=== PATIENT | female | born 1940 | race Caucasian/White ===

== ENCOUNTER 2018-04-18 12:21 | Emergency (ER) | payer OTHER, MEDICARE | END 2018-04-18 14:41 | disposition home or self-care (01) | LOC: ER 12:21 | DX: M16.11 Unilateral primary osteoarthritis, right hip (principal); E78.00 Pure hypercholesterolemia, unspecified; I10 Essential (primary) hypertension; K21.9 Gastro-esophageal reflux disease without esophagitis; Z90.49 Acquired absence of other specified parts of digestive tract | CPT/HCPCS: 73502; 99284 ==

== ENCOUNTER 2019-06-26 15:48 | Emergency (ER) | payer OTHER, MEDICARE ==
[~2019-06-26] VITALS: Ht 165.1 cm; Wt 69.9 kg
[~2019-06-26 15:48] MED LIST: CIPR250T PO; HYDR-2761 PO; HYDR-3164 PO; LISI-130 PO; ONDA4TAB10 SL
--- NOTE | 2019-06-26 16:05 | PHYS DOC ---
Past Medical History Past Medical History: GERD, Hypertension Additional Past Medical Histor: OSTEOPOROSIS (RAJANI JORGE APRN) Past Surgical History: Appendectomy, Tonsillectomy Additional Past Surgical Histo: HEPATIC CYST REMOVAL (RAJANI JORGE APRN) Alcohol Use: Rarely Drug Use: None (RAJANI JORGE APRN) Adult General Chief Complaint Chief Complaint: SHORTNESS OF BREATH HPI HPI Patient is a 78 year old female with history of hypertension, acid reflex, arthritis to the left hip, who presents to the ED today complaining of intermittent episodes of shortness of breath for one week. Patient denies any cough, congestion, fever. She was seen by the PCP today and was sent to the ED to be worked up. (RAJANI JORGE APRN) Review of Systems Review of Systems Constitutional: Denies fever or chills [] Eyes: Denies change in visual acuity, redness, or eye pain [] HENT: Denies nasal congestion or sore throat [] Respiratory: Reports shortness of breath [] Cardiovascular: No additional information not addressed in HPI [] GI: Denies abdominal pain, nausea, vomiting, bloody stools or diarrhea [] : Denies dysuria or hematuria [] Musculoskeletal: Denies back pain or joint pain [] Integument: Denies rash or skin lesions [] Neurologic: Denies headache, focal weakness or sensory changes [] All other systems were reviewed and found to be within normal limits, except as documented in this note. (RAJANI JORGE APRN) Current Medications Current Medications Current Medications Medications (Trade) Dose Ordered Sig/Phillip Start Time Stop Time Status Last Admin Dose Admin Albuterol/ Ipratropium (Duoneb) 3 ml 1X ONCE 06/26/19 18:45 06/26/19 18:46 DC 06/26/19 18:45 3 ML Ceftriaxone Sodium (Rocephin) 1 gm 1X ONCE 06/26/19 18:30 06/26/19 18:31 DC 06/26/19 19:14 1 GM Info (CONTRAST GIVEN -- Rx MONITORING) 1 each PRN DAILY PRN 06/26/19 17:30 06/26/19 20:13 DC Iohexol (Omnipaque 350 Mg/ml) 100 ml 1X ONCE 06/26/19 18:00 06/26/19 18:01 DC 06/26/19 17:51 100 ML Methylprednisolone Sodium Succinate (SOLU-Medrol 125MG VIAL) 125 mg 1X ONCE 06/26/19 18:45 06/26/19 18:46 DC 06/26/19 19:14 125 MG (STEVO TERRY DO) Allergies Allergies Allergies Coded Allergies Type Severity Reaction Last Updated Verified No Known Drug Allergies 09/18/15 No (STEVO TERRY DO) Physical Exam Physical Exam Constitutional: Well developed, well nourished, no acute distress, non-toxic appearance. [] HENT: Normocephalic, atraumatic, bilateral external ears normal, oropharynx moist, no oral exudates, nose normal. [] Eyes: PERRLA, EOMI, conjunctiva normal, no discharge. [] Neck: Normal range of motion, no tenderness, supple, no stridor. [] Cardiovascular:Heart rate regular rhythm, no murmur [] Lungs & Thorax: Lungs are clear the patient seems to breathe faster Abdomen: Bowel sounds normal, soft, no tenderness, no masses, no pulsatile masses. [] Skin: Warm, dry, no erythema, no rash. [] Back: No tenderness, no CVA tenderness. [] Extremities: No tenderness, no cyanosis, no clubbing, ROM intact, no edema. [] Neurologic: Alert and oriented X 3, normal motor function, normal sensory function, no focal deficits noted. [] Psychologic: Patient appears very anxious. (RAJANI JORGE APRN) Current Patient Data Vital Signs Vital Signs Date Time Temp Pulse Resp B/P (MAP) Pulse Ox O2 Delivery O2 Flow Rate FiO2 06/26/19 18:49 71 142/61 (88) Room Air 06/26/19 18:45 96 06/26/19 16:31 18 06/26/19 15:54 97.8 97.8 (STEVO TERRY DO) Lab Values Laboratory Tests Test 06/26/19 16:27 06/26/19 16:49 White Blood Count 11.3 x10^3/uL (4.0-11.0) H Red Blood Count 4.50 x10^6/uL (3.50-5.40) Hemoglobin 13.4 g/dL (12.0-15.5) Hematocrit 39.3 % (36.0-47.0) Mean Corpuscular Volume 87 fL (79-100) Mean Corpuscular Hemoglobin 30 pg (25-35) Mean Corpuscular Hemoglobin Concent 34 g/dL (31-37) Red Cell Distribution Width 13.5 % (11.5-14.5) Platelet Count 290 x10^3/uL (140-400) Neutrophils (%) (Auto) 63 % (31-73) Lymphocytes (%) (Auto) 28 % (24-48) Monocytes (%) (Auto) 7 % (0-9) Eosinophils (%) (Auto) 1 % (0-3) Basophils (%) (Auto) 1 % (0-3) Neutrophils # (Auto) 7.2 x10^3/uL (1.8-7.7) Lymphocytes # (Auto) 3.2 x10^3/uL (1.0-4.8) Monocytes # (Auto) 0.8 x10^3/uL (0.0-1.1) Eosinophils # (Auto) 0.1 x10^3/uL (0.0-0.7) Basophils # (Auto) 0.1 x10^3/uL (0.0-0.2) Prothrombin Time 12.3 SEC (11.7-14.0) Prothrombin Time INR 0.9 (0.8-1.1) Activated Partial Thromboplast Time 27 SEC (24-38) D-Dimer (Lavinia) 1.39 ug/mlFEU (0.00-0.50) H Sodium Level 141 mmol/L (136-145) Potassium Level 3.7 mmol/L (3.5-5.1) Chloride Level 103 mmol/L (98-107) Carbon Dioxide Level 23 mmol/L (21-32) Anion Gap 15 (6-14) H Blood Urea Nitrogen 17 mg/dL (7-20) Creatinine 1.0 mg/dL (0.6-1.0) Estimated GFR (Cockcroft-Gault) 53.8 BUN/Creatinine Ratio 17 (6-20) Glucose Level 99 mg/dL (70-99) Calcium Level 9.8 mg/dL (8.5-10.1) Magnesium Level 2.0 mg/dL (1.8-2.4) Total Bilirubin 0.4 mg/dL (0.2-1.0) Aspartate Amino Transferase (AST) 16 U/L (15-37) Alanine Aminotransferase (ALT) 17 U/L (14-59) Alkaline Phosphatase 66 U/L (46-116) Creatine Kinase 59 U/L (26-192) Creatine Kinase MB (Mass) 0.7 ng/mL (0.0-3.6) Creatine Kinase MB Relative Index % (0-4) Troponin I Quantitative < 0.017 ng/mL (0.000-0.055) SN-Pdt-M-Type Natriuretic Peptide 162 pg/mL (0-449) Total Protein 7.1 g/dL (6.4-8.2) Albumin 3.8 g/dL (3.4-5.0) Albumin/Globulin Ratio 1.2 (1.0-1.7) Urine Collection Type Unknown Urine Color Yellow Urine Clarity Clear Urine pH 7.5 Urine Specific Franklin 1.015 Urine Protein Negative mg/dL (NEG-TRACE) Urine Glucose (UA) Negative mg/dL (NEG) Urine Ketones (Stick) 15 mg/dL (NEG) Urine Blood Negative (NEG) Urine Nitrite Positive (NEG) Urine Bilirubin Negative (NEG) Urine Urobilinogen Dipstick 1.0 mg/dL (0.2 mg/dL) Urine Leukocyte Esterase Moderate (NEG) Urine RBC 0 /HPF (0-2) Urine WBC 20-40 /HPF (0-4) Urine Squamous Epithelial Cells Mod /LPF Urine Transitional Epithelial Cells Few /LPF Urine Bacteria Many /HPF (0-FEW) Urine Hyaline Casts Few /HPF Urine Mucus Slight /LPF Urine Opiates Screen Neg (NEG) Urine Methadone Screen Neg (NEG) Urine Barbiturates Neg (NEG) Urine Phencyclidine Screen Neg (NEG) Urine Amphetamine/Methamphetamine Neg (NEG) Urine Benzodiazepines Screen Neg (NEG) Urine Cocaine Screen Neg (NEG) Urine Cannabinoids Screen Neg (NEG) Urine Ethyl Alcohol Neg (NEG) Laboratory Tests 06/26/19 16:27 Laboratory Tests 06/26/19 16:27 (STEVO TERRY DO) Lab Values Laboratory Tests Test 06/26/19 16:27 06/26/19 16:49 White Blood Count 11.3 x10^3/uL (4.0-11.0) H Red Blood Count 4.50 x10^6/uL (3.50-5.40) Hemoglobin 13.4 g/dL (12.0-15.5) Hematocrit 39.3 % (36.0-47.0) Mean Corpuscular Volume 87 fL (79-100) Mean Corpuscular Hemoglobin 30 pg (25-35) Mean Corpuscular Hemoglobin Concent 34 g/dL (31-37) Red Cell Distribution Width 13.5 % (11.5-14.5) Platelet Count 290 x10^3/uL (140-400) Neutrophils (%) (Auto) 63 % (31-73) Lymphocytes (%) (Auto) 28 % (24-48) Monocytes (%) (Auto) 7 % (0-9) Eosinophils (%) (Auto) 1 % (0-3) Basophils (%) (Auto) 1 % (0-3) Neutrophils # (Auto) 7.2 x10^3/uL (1.8-7.7) Lymphocytes # (Auto) 3.2 x10^3/uL (1.0-4.8) Monocytes # (Auto) 0.8 x10^3/uL (0.0-1.1) Eosinophils # (Auto) 0.1 x10^3/uL (0.0-0.7) Basophils # (Auto) 0.1 x10^3/uL (0.0-0.2) Prothrombin Time 12.3 SEC (11.7-14.0) Prothrombin Time INR 0.9 (0.8-1.1) Activated Partial Thromboplast Time 27 SEC (24-38) D-Dimer (Lavinia) 1.39 ug/mlFEU (0.00-0.50) H Sodium Level 141 mmol/L (136-145) Potassium Level 3.7 mmol/L (3.5-5.1) Chloride Level 103 mmol/L (98-107) Carbon Dioxide Level 23 mmol/L (21-32) Anion Gap 15 (6-14) H Blood Urea Nitrogen 17 mg/dL (7-20) Creatinine 1.0 mg/dL (0.6-1.0) Estimated GFR (Cockcroft-Gault) 53.8 BUN/Creatinine Ratio 17 (6-20) Glucose Level 99 mg/dL (70-99) Calcium Level 9.8 mg/dL (8.5-10.1) Magnesium Level 2.0 mg/dL (1.8-2.4) Total Bilirubin 0.4 mg/dL (0.2-1.0) Aspartate Amino Transferase (AST) 16 U/L (15-37) Alanine Aminotransferase (ALT) 17 U/L (14-59) Alkaline Phosphatase 66 U/L (46-116) Creatine Kinase 59 U/L (26-192) Creatine Kinase MB (Mass) 0.7 ng/mL (0.0-3.6) Creatine Kinase MB Relative Index % (0-4) Troponin I Quantitative < 0.017 ng/mL (0.000-0.055) QS-Nbq-R-Type Natriuretic Peptide 162 pg/mL (0-449) Total Protein 7.1 g/dL (6.4-8.2) Albumin 3.8 g/dL (3.4-5.0) Albumin/Globulin Ratio 1.2 (1.0-1.7) Urine Collection Type Unknown Urine Color Yellow Urine Clarity Clear Urine pH 7.5 Urine Specific Franklin 1.015 Urine Protein Negative mg/dL (NEG-TRACE) Urine Glucose (UA) Negative mg/dL (NEG) Urine Ketones (Stick) 15 mg/dL (NEG) Urine Blood Negative (NEG) Urine Nitrite Positive (NEG) Urine Bilirubin Negative (NEG) Urine Urobilinogen Dipstick 1.0 mg/dL (0.2 mg/dL) Urine Leukocyte Esterase Moderate (NEG) Urine RBC 0 /HPF (0-2) Urine WBC 20-40 /HPF (0-4) Urine Squamous Epithelial Cells Mod /LPF Urine Transitional Epithelial Cells Few /LPF Urine Bacteria Many /HPF (0-FEW) Urine Hyaline Casts Few /HPF Urine Mucus Slight /LPF Urine Opiates Screen Neg (NEG) Urine Methadone Screen Neg (NEG) Urine Barbiturates Neg (NEG) Urine Phencyclidine Screen Neg (NEG) Urine Amphetamine/Methamphetamine Neg (NEG) Urine Benzodiazepines Screen Neg (NEG) Urine Cocaine Screen Neg (NEG) Urine Cannabinoids Screen Neg (NEG) Urine Ethyl Alcohol Neg (NEG) Laboratory Tests 06/26/19 16:27 Laboratory Tests 06/26/19 16:27 (RAJANI JORGE APRN) EKG EKG [address] Terry sinus rhythm Hr 77 no STEMI[] (RAJANI JORGE APRN) Radiology/Procedures Radiology/Procedures []PROCEDURE: PORTABLE CHEST 1V PROCEDURE: PORTABLE CHEST 1V CLINICAL INDICATION: Shortness of breath. COMPARISON: None FINDINGS: No pneumothorax identified. Cardiac and mediastinal contours unremarkable. No pulmonary consolidation or acute airspace disease. No acute osseous abnormalities identified. IMPRESSION: No pulmonary consolidation or acute airspace disease. Electronically signed by: Abhilash Lai DO (06/26/2019 4:15 PM) [facility] DICTATED and SIGNED BY: ABHILASH LAI DO DATE: 06/26/19 1615 PROCEDURE: CT ANGIOGRAPHY CHEST Exam: CTA chest INDICATION: Shortness of breath TECHNIQUE: Sequential axial images through the chest obtained following the administration of 75 mL of Omni 350 IV contrast. Sagittal and coronal reformatted images were reconstructed from the axial data and reviewed. 3-D reformatted images were reconstructed from the axial data and reviewed. Comparisons: Chest x-ray same day FINDINGS: Visualized portions of the thyroid are unremarkable. No enlarged mediastinal lymph nodes. Heart size is normal. No pericardial effusion. Thoracic aorta has a normal course and caliber. Hepatic artery is replaced to the SMA. Pulmonary artery is not enlarged. No pulmonary embolus identified within the main, lobar or segmental arteries. Evaluation of the upper lungs is limited secondary to respiratory motion. Airways are patent. No consolidation or pneumothorax. 6 mm nodule right middle lobe series 3 image 83. Atelectatic changes noted in the right middle lobe. 6 mm nodule left lower lobe image 105. No pleural effusion or thickening. Several simple fluid attenuating cystic lesions are noted within the liver, likely representing simple cysts. Moderate-sized hiatal hernia. No suspicious osseous lesion or acute fracture. IMPRESSION: 1. Limited evaluation of the upper lungs secondary to respiratory motion. 2. No pulmonary embolus identified within the main, lobar or segmental arteries with limitations as described above. 3. Several pulmonary nodules described above largest measuring 6 mm. In a low-risk patient no further follow-up imaging is recommended. High-risk patient optional one-year follow-up CT can BE performed. 4. Moderate sized hiatal hernia. Exposure: One or more of the following in the visualized dose reduction techniques were utilized for this examination: 1. Automated exposure control 2. Adjustment of the MA and/or KV according to patient size 3. Use of iterative of reconstructive technique Electronically signed by: Checo Gifford MD (06/26/2019 6:21 PM) [facility] DICTATED and SIGNED BY: CHECO GIFFORD MD DATE: 06/26/191820 (RAJANI JORGE APRN) Course & Med Decision Making Course & Med Decision Making Pertinent Labs and Imaging studies reviewed. (See chart for details) This is a 78-year-old female patient presenting to the ED today with an in termittent episodes of shortness of breath for one week. Vitals on arrival to the ED temperature 97.8, heart rate 78, O2 sats 100% on room air, respiration 20 room air blood pressure 140/68. CBC, CMP findings. D-dimer was 1.39-CT chest was done, negative for PE. Noted for pulmonary nodules which were discussed with patient. Patient states she has no history of smoking but lived in a house with smokers. Urine analysis is noted for UTI. She was given Rocephin in the ED. She was discharged with cephalexin. Patient is in no distress-I highly suspect anxiety being the source of her symptoms. She has good follow-up with her PCP. Recommended she follows up next week. (RAJANI JORGE APRN) Dragon Disclaimer Dragon Disclaimer This electronic medical record was generated, in whole or in part, using a voice recognition dictation system. (RAJANI JORGE APRN) Departure Departure Impression: Primary Impression: Anxiety Additional Impressions: Urinary tract infection Shortness of breath Pulmonary nodules Disposition: HOME, SELF-CARE Condition: STABLE Referrals: RODRIGUEZ ARNOLD MD (PCP) Follow-up with your doctor next week Patient Instructions: Shortness of Breath, Tefp-ya-Vrnm, Urinary Tract Infection Additional Instructions: You were evaluated in the emergency room for shortness of breath. Your workup was negative for any acute findings, you were noted for urinary tract infection and put on antibiotics, ensure you complete them. Please follow-up with your doctor next week. Scripts Alprazolam (XANAX) 0.25 Mg Tablet 1 TAB PO BID, #12 TAB Prov: RAJANI JORGE APRN 06/26/19 Cephalexin (CEPHALEXIN) 500 Mg Capsule 1 CAP PO BID, #14 CAP Prov: RAJANI JORGE APRN 06/26/19 Attending Signature Attending Signature I have reviewed the PA/ESCROW OFFICER's note and plan of care. I was available for consultation as needed during the patient's visit in the emergency department. I agree with the clinical impression, plan, and disposition. (STEVO TERRY DO) Problem Qualifiers Additional Impressions: Urinary tract infection Urinary tract infection type: site unspecified Hematuria presence: without hematuria Qualified Codes: N39.0 - Urinary tract infection, site not specified RAJANI JORGE APRN Jun 26, 2019 16:05 STEVO TERRY DO Jun 27, 2019 04:02
--- NOTE | 2019-06-26 16:11 | EKG ---
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
--- NOTE | 2019-06-26 16:17 | RAD ---
PROCEDURE: PORTABLE CHEST 1V CLINICAL INDICATION: Shortness of breath. COMPARISON: None FINDINGS: No pneumothorax identified. Cardiac and mediastinal contours unremarkable. No pulmonary consolidation or acute airspace disease. No acute osseous abnormalities identified. IMPRESSION: No pulmonary consolidation or acute airspace disease. Electronically signed by: Abhilash Lai DO (06/26/2019 4:15 PM) [facility]
[2019-06-26 16:39] LABS: BASO # 0.1 x10^3/uL (0.0-0.2); BASO % 1 % (0-3); EOS # 0.1 x10^3/uL (0.0-0.7); EOS % 1 % (0-3); HEMATOCRIT 39.3 % (36.0-47.0); HEMOGLOBIN 13.4 g/dL (12.0-15.5); LYMPH # 3.2 x10^3/uL (1.0-4.8); LYMPH % 28 % (24-48); MEAN CORPUSCULAR HEMOGLOBIN 30 pg (25-35); MEAN CORPUSCULAR HGB CONC 34 g/dL (31-37); MEAN CORPUSCULAR VOLUME 87 fL (79-100); MONO # 0.8 x10^3/uL (0.0-1.1); MONO % 7 % (0-9); NEUT # 7.2 x10^3/uL (1.8-7.7); NEUT % 63 % (31-73); PLATELET COUNT 290 x10^3/uL (140-400); RED CELL DISTRIBUTION WIDTH 13.5 % (11.5-14.5); WHITE BLOOD COUNT 11.3 x10^3/uL (4.0-11.0)
[2019-06-26 16:50] LABS: CALCIUM 9.8 mg/dL (8.5-10.1); GFR 53.8; POTASSIUM 3.7 mmol/L (3.5-5.1)
[2019-06-26 16:51] LABS: PROTHROMBIN TIME PATIENT 12.3 SEC (11.7-14.0)
[2019-06-26 16:56] LABS: ALBUMIN 3.8 g/dL (3.4-5.0); ALBUMIN/GLOBULIN RATIO 1.2 (1.0-1.7); D-DIMER 1.39 ug/mlFEU (0.00-0.50); TOTAL BILIRUBIN 0.4 mg/dL (0.2-1.0); TOTAL PROTEIN 7.1 g/dL (6.4-8.2)
[2019-06-26 16:57] LABS: BILIRUBIN,URINE NEGATIVE (NEG); CLARITY,URINE CLEAR; COLOR,URINE YELLOW; NITRITE,URINE POSITIVE (NEG); PH,URINE 7.5; PROTEIN,URINE NEGATIVE (NEG-TRACE)
[2019-06-26 17:01] LABS: BACTERIA,URINE MANY /HPF (0-FEW); HYALINE CASTS, URINE FEW /HPF; RBC,URINE 0 /HPF (0-2); SQUAMOUS EPITHELIAL CELL,UR MOD /LPF; WBC,URINE 20-40 /HPF (0-4)
[2019-06-26 17:02] LABS: BARBITURATES NEG (NEG); BENZODIAZEPINES NEG (NEG); CANNABINOIDS NEG (NEG); COCAINE NEG (NEG); METHADONE NEG (NEG); OPIATES NEG (NEG); PHENCYCLIDINE NEG (NEG)
[2019-06-26 17:03] LABS: AMPHETAMINE/METHAMPHETAMINE NEG (NEG)
[2019-06-26 17:03] LABS: CREATINE KINASE 59 U/L (26-192)
[2019-06-26] MEDS ORDERED: CONTRAST GIVEN. MC PRN (17:30)
[2019-06-26] MEDS ORDERED: IOHEXOL 350 MG/ML 100 ML VIAL. IV ONE (18:00)
--- NOTE | 2019-06-26 18:24 | RAD ---
Exam: CTA chest INDICATION: Shortness of breath TECHNIQUE: Sequential axial images through the chest obtained following the administration of 75 mL of Omni 350 IV contrast. Sagittal and coronal reformatted images were reconstructed from the axial data and reviewed. 3-D reformatted images were reconstructed from the axial data and reviewed. Comparisons: Chest x-ray same day FINDINGS: Visualized portions of the thyroid are unremarkable. No enlarged mediastinal lymph nodes. Heart size is normal. No pericardial effusion. Thoracic aorta has a normal course and caliber. Hepatic artery is replaced to the SMA. Pulmonary artery is not enlarged. No pulmonary embolus identified within the main, lobar or segmental arteries. Evaluation of the upper lungs is limited secondary to respiratory motion. Airways are patent. No consolidation or pneumothorax. 6 mm nodule right middle lobe series 3 image 83. Atelectatic changes noted in the right middle lobe. 6 mm nodule left lower lobe image 105. No pleural effusion or thickening. Several simple fluid attenuating cystic lesions are noted within the liver, likely representing simple cysts. Moderate-sized hiatal hernia. No suspicious osseous lesion or acute fracture. IMPRESSION: 1. Limited evaluation of the upper lungs secondary to respiratory motion. 2. No pulmonary embolus identified within the main, lobar or segmental arteries with limitations as described above. 3. Several pulmonary nodules described above largest measuring 6 mm. In a low-risk patient no further follow-up imaging is recommended. High-risk patient optional one-year follow-up CT can BE performed. 4. Moderate sized hiatal hernia. Exposure: One or more of the following in the visualized dose reduction techniques were utilized for this examination: 1. Automated exposure control 2. Adjustment of the MA and/or KV according to patient size 3. Use of iterative of reconstructive technique Electronically signed by: Checo Malhotra MD (06/26/2019 6:21 PM) [facility]
[2019-06-26] MEDS ORDERED: cefTRIAXone IV Push 1 GM VIAL. IVP ONE (18:30)
[2019-06-26] MEDS ORDERED: IPRATRPIUM/ALBUTEROL 0.5/2.5MG 3 ML NEBU. NEB ONE (18:45)
[2019-06-26] MEDS ORDERED: methylPREDNISolone SOD SUCC PF 125 MG/2 ML VIAL. IV ONE (18:45)
[2019-06-26 18:49] VITALS: BP 142/61
[2019-06-26] MEDS ORDERED: CEPH500C PO (18:58)
[2019-06-26] MEDS ORDERED: ALPR0.25 PO (19:28)
== END 2019-06-26 19:33 | disposition home or self-care (01) ==
LOC: ER 15:48
DX: R91.8 Other nonspecific abnormal finding of lung field (principal); F41.9 Anxiety disorder, unspecified; N39.0 Urinary tract infection, site not specified; K21.9 Gastro-esophageal reflux disease without esophagitis; M19.90 Unspecified osteoarthritis, unspecified site; I10 Essential (primary) hypertension; Z90.89 Acquired absence of other organs
CPT/HCPCS: 36415; 71045; 71275; 80053; 80307; 81001; 82553; 83735; 83880; 84484; 85025; 85379; 85610; 85730; 93005; 94640; 96374; 96375; 99285; J0696; J2930; J7620; Q9967

== ENCOUNTER 2021-06-06 17:21 | Emergency (ER) | payer OTHER, MEDICARE ==
[~2021-06-06 17:21] MED LIST changes: +ALPR0.25 PO; +CEPH500C PO
== END 2021-06-06 18:49 | disposition left against medical advice (07) ==
LOC: ER 17:21
DX: M54.5 Low back pain (principal); Z53.21 Procedure and treatment not carried out due to patient leaving prior to being seen by health care provider

== ENCOUNTER 2021-09-15 04:14 | Emergency (ER) | payer OTHER, MEDICARE ==
[~2021-09-15] VITALS: Ht 162.6 cm; Wt 60.9 kg
[2021-09-15 05:01] VITALS: BP 162/93
[2021-09-15 05:09] LABS: BASO # 0.1 x10^3/uL (0.0-0.2); BASO % 1 % (0-3); EOS # 0.2 x10^3/uL (0.0-0.7); EOS % 3 % (0-3); HEMATOCRIT 38.4 % (36.0-47.0); HEMOGLOBIN 12.6 g/dL (12.0-15.5); LYMPH # 2.1 x10^3/uL (1.0-4.8); LYMPH % 29 % (24-48); MEAN CORPUSCULAR HEMOGLOBIN 30 pg (25-35); MEAN CORPUSCULAR HGB CONC 33 g/dL (31-37); MEAN CORPUSCULAR VOLUME 90 fL (79-100); MONO # 0.5 x10^3/uL (0.0-1.1); MONO % 7 % (0-9); NEUT # 4.4 x10^3/uL (1.8-7.7); NEUT % 60 % (31-73); PLATELET COUNT 273 x10^3/uL (140-400); RED BLOOD COUNT 4.27 x10^6/uL (3.50-5.40); RED CELL DISTRIBUTION WIDTH 14.1 % (11.5-14.5); WHITE BLOOD COUNT 7.3 x10^3/uL (4.0-11.0)
[2021-09-15 05:20] LABS: CREATININE 0.8 mg/dL (0.6-1.0); GFR 69.2; POTASSIUM 3.8 mmol/L (3.5-5.1)
[2021-09-15 05:26] LABS: ALBUMIN 3.5 g/dL (3.4-5.0); TOTAL BILIRUBIN 0.2 mg/dL (0.2-1.0); TOTAL PROTEIN 7.1 g/dL (6.4-8.2)
[2021-09-15] MEDS ORDERED: IOHEXOL 300 MG/ML 100ML VIAL. IV ONE (05:30)
[2021-09-15] MEDS ORDERED: CONTRAST GIVEN. MC PRN (05:30)
--- NOTE | 2021-09-15 06:01 | RAD ---
PQRS Compliance Statement: One or more of the following individualized dose reduction techniques were utilized for this examinat ion: 1. Automated exposure control 2. Adjustment of the mA and/or kV according to patient size 3. Use of iterative reconstruction technique CT ABDOMEN+PELVIS W Clinical Indication: Reason: ruq pain; Comparison: CT PE, June 26, 2019. Technique: Helical CT imaging of the abdomen and pelvis is performed after 75 cc of Omnipaque 300 IV contrast. Oral contrast not administered. Findings: Minimal scarring in the right middle lobe. Cardiac size normal. Small hiatal hernia. There are multiple hepatic cysts. The gallbladder, spleen, pancreas, adrenal glands, abdominal aorta, and kidneys are normal. The stomach is decompressed, limiting evaluation. There is no dilated small bowel. There is sigmoid a nd descending colon diverticulosis. There is moderate colon stool volume, may indicate constipation. No colon wall thickening is identified. The appendix is not identified, no secondary signs of appendi citis. No abdominal adenopathy or free fluid. The urinary bladder is mostly decompressed accentuating the wall thickness. Atrophic uterus. Ovaries are similar in size. There is no pelvic free fluid. Grade 1 anterolisthesis of L4 on L5. Vacuum disc phenomenon lower thoracic spine at L4/L5. IMPRESSION: 1. No acute abdominal or pelvic abnormality. 2. Hepatic cysts. 3. Distal colon diverticulosis. Electronically signed by: Solomon Santa MD (09/15/2021 5:58 AM) [facility]
--- NOTE | 2021-09-15 06:04 | RAD ---
XR CHEST 1V Clinical Indication: Reason: shortness of breath / Comparison: AP chest June 26, 2019. Findings: The cardiomediastinal silhouette is normal. There is mild atelectasis or scarring in the medial right lung base. Lungs are otherwise clear. There is no pneumothorax. No pleural effusion is appreciated. No acute bone abnormality. IMPRESSION: Mild atelectasis or scarring in the medial right lung base. Electronically signed by: Solomon Santa MD (09/15/2021 6:01 AM) [facility]
--- NOTE | 2021-09-15 06:26 | PHYS DOC ---
Past Medical History Past Medical History: GERD, Hypertension Additional Past Medical Histor: OSTEOPOROSIS Past Surgical History: Appendectomy, Tonsillectomy Additional Past Surgical Histo: HEPATIC CYST REMOVAL Smoking Status: Never Smoker Alcohol Use: Occasionally Drug Use: None General Adult EDM: Chief Complaint: SHORTNESS OF BREATH HPI: HPI: Patient is a 80 year old female with history of hepatic cysts who presents with shortness of breath and right upper quadrant pain. States that her right upper quadrant has had an achy discomfort that is worsened over the past couple of weeks. Has felt occasionally short of breath over the past couple of days. Last night woke up in the middle the night and felt like she was choking and could not catch her breath. Denies fevers or chills. No sick contacts. Is vaccinated against Covid. No chest pain. No lower extremity edema or lower extremity pain. No recent surgeries or immobilizations. Review of Systems: Review of Systems: Constitutional: Denies fever or chills. [] Eyes: Denies change in visual acuity. [] HENT: Denies nasal congestion or sore throat. [] Respiratory: Denies cough. Reports shortness of breath. [] Cardiovascular: Denies chest pain or edema. [] GI: Reports abdominal pain. Denies nausea, vomiting, bloody stools or diarrhea. [] : Denies dysuria. [] Musculoskeletal: Denies back pain or joint pain. [] Integument: Denies rash. [] Neurologic: Denies headache, focal weakness or sensory changes. [] Endocrine: Denies polyuria or polydipsia. [] Lymphatic: Denies swollen glands. [] Psychiatric: Denies depression or anxiety. [] Heart Score: C/O Chest Pain: No Risk Factors: Risk Factors: DM, Current or recent (<one month) smoker, HTN, HLP, family history of CAD, obesity. Risk Scores: Score 0 - 3: 2.5% MACE over next 6 weeks - Discharge Home Score 4 - 6: 20.3% MACE over next 6 weeks - Admit for Clinical Observation Score 7 - 10: 72.7% MACE over next 6 weeks - Early Invasive Strategies Current Medications: Current Medications Medications (Trade) Dose Ordered Sig/Phillip Start Time Stop Time Status Last Admin Dose Admin Info (CONTRAST GIVEN -- Rx MONITORING) 1 each PRN DAILY PRN 09/15/21 05:30 09/17/21 05:29 Iohexol (Omnipaque 300 Mg/ml) 75 ml 1X ONCE 09/15/21 05:30 09/15/21 05:31 DC 09/15/21 05:33 75 ML Allergies: Allergies: Allergies Coded Allergies Type Severity Reaction Last Updated Verified No Known Drug Allergies 09/18/15 No Physical Exam: PE: Constitutional: Well developed, well nourished, no acute distress, non-toxic appearance. [] HENT: Normocephalic, atraumatic, bilateral external ears normal, oropharynx moist, no oral exudates, nose normal. [] Eyes: PERRLA, EOMI, conjunctiva normal, no discharge. [] Neck: Normal range of motion, no tenderness, supple, no stridor. [] Cardiovascular:Heart rate regular rhythm, no murmur [] Lungs & Thorax: Bilateral breath sounds clear to auscultation [] Abdomen: Reproducible tenderness in the right upper quadrant, no rebound, soft, nondistended. Skin: Warm, dry, no erythema, no rash. [] Back: No tenderness, no CVA tenderness. [] Extremities: No tenderness, no cyanosis, no clubbing, ROM intact, no edema. [] Neurologic: Alert and oriented X 3, normal motor function, normal sensory function, no focal deficits noted. [] Psychologic: Affect normal, judgement normal, mood normal. [] Current Patient Data: Labs: Laboratory Tests Test 09/15/21 04:43 White Blood Count 7.3 x10^3/uL (4.0-11.0) Red Blood Count 4.27 x10^6/uL (3.50-5.40) Hemoglobin 12.6 g/dL (12.0-15.5) Hematocrit 38.4 % (36.0-47.0) Mean Corpuscular Volume 90 fL (79-100) Mean Corpuscular Hemoglobin 30 pg (25-35) Mean Corpuscular Hemoglobin Concent 33 g/dL (31-37) Red Cell Distribution Width 14.1 % (11.5-14.5) Platelet Count 273 x10^3/uL (140-400) Neutrophils (%) (Auto) 60 % (31-73) Lymphocytes (%) (Auto) 29 % (24-48) Monocytes (%) (Auto) 7 % (0-9) Eosinophils (%) (Auto) 3 % (0-3) Basophils (%) (Auto) 1 % (0-3) Neutrophils # (Auto) 4.4 x10^3/uL (1.8-7.7) Lymphocytes # (Auto) 2.1 x10^3/uL (1.0-4.8) Monocytes # (Auto) 0.5 x10^3/uL (0.0-1.1) Eosinophils # (Auto) 0.2 x10^3/uL (0.0-0.7) Basophils # (Auto) 0.1 x10^3/uL (0.0-0.2) Sodium Level 139 mmol/L (136-145) Potassium Level 3.8 mmol/L (3.5-5.1) Chloride Level 105 mmol/L (98-107) Carbon Dioxide Level 26 mmol/L (21-32) Anion Gap 8 (6-14) Blood Urea Nitrogen 21 mg/dL (7-20) H Creatinine 0.8 mg/dL (0.6-1.0) Estimated GFR (Cockcroft-Gault) 69.2 BUN/Creatinine Ratio 26 (6-20) H Glucose Level 100 mg/dL (70-99) H Calcium Level 9.0 mg/dL (8.5-10.1) Total Bilirubin 0.2 mg/dL (0.2-1.0) Aspartate Amino Transferase (AST) 11 U/L (15-37) L Alanine Aminotransferase (ALT) 17 U/L (14-59) Alkaline Phosphatase 65 U/L (46-116) Troponin I High Sensitivity 6 ng/L (4-50) Total Protein 7.1 g/dL (6.4-8.2) Albumin 3.5 g/dL (3.4-5.0) Albumin/Globulin Ratio 1.0 (1.0-1.7) Lipase 75 U/L (73-393) Laboratory Tests 09/15/21 04:43 Laboratory Tests 09/15/21 04:43 Vital Signs: Vital Signs Date Time Temp Pulse Resp B/P (MAP) Pulse Ox O2 Delivery O2 Flow Rate FiO2 09/15/21 04:30 98.6 63 22 176/87 (116) 100 Room Air 98.6 EKG: EKG: [] Sinus rhythm. QTc 467. Left axis deviation. T wave inversion in lead I. No acute ST elevation or depression. Radiology/Procedures: Radiology/Procedures: [] Impression: [place] [id number] [place] [id number] IMAGING REPORT Signed PATIENT: ELIZABETH DANIELS ACCOUNT: [id number] : 1940 LOCATION: ER AGE: 80 SEX: F EXAM STATUS: PRE ER ORD. PHYSICIAN: COLEEN MOREJON MD REASON: shortness of breath PROCEDURE: CHEST AP ONLY XR CHEST 1V Clinical Indication: Reason: shortness of breath / Comparison: AP chest June 26, 2019. Findings: The cardiomediastinal silhouette is normal. There is mild atelectasis or scarring in the medial right lung base. Lungs are otherwise clear. There is no pneumothorax. No pleural effusion is appreciated. No acute bone abnormality. IMPRESSION: Mild atelectasis or scarring in the medial right lung base. Electronically signed by: Solomon Santa MD (09/15/2021 6:01 AM) [facility] DICTATED and SIGNED BY: SOLOMON SANTA MD DATE: 09/15/21 [id number] [id number] [place] [address] IMAGING REPORT Signed PATIENT: ELIZABETH DANIELS ACCOUNT: [id number] : 1940 LOCATION: ER AGE: 80 SEX: F EXAM STATUS: PRE ER ORD. PHYSICIAN: COLEEN MOREJON MD REASON: ruq pain;OMNI 300, 75ML PROCEDURE: CT ABD PELV W/ IV CONTRST ONLY PQRS Compliance Statement: One or more of the following individualized dose reduction techniques were utilized for this examination: 1. Automated exposure control 2. Adjustment of the mA and/or kV according to patient size 3. Use of iterative reconstruction technique CT ABDOMEN+PELVIS W Clinical Indication: Reason: ruq pain; Comparison: CT PE, June 26, 2019. Technique: Helical CT imaging of the abdomen and pelvis is performed after 75 cc of Omnipaque 300 IV contrast. Oral contrast not administered. Findings: Minimal scarring in the right middle lobe. Cardiac size normal. Small hiatal her ebony. There are multiple hepatic cysts. The gallbladder, spleen, pancreas, adrenal glands, abdominal aorta, and kidneys are normal. The stomach is decompressed, limiting evaluation. There is no dilated small bowel. There is sigmoid and descending colon diverticulosis. There is moderate colon stool volume, may indicate constipation. No colon wall thickening is identified. The appendix is not identified, no secondary signs of appendicitis. No abdominal adenopathy or free fluid. The urinary bladder is mostly decompressed accentuating the wall thickness. Atrophic uterus. Ovaries are similar in size. There is no pelvic free fluid. Grade 1 anterolisthesis of L4 on L5. Vacuum disc phenomenon lower thoracic spine at L4/L5. IMPRESSION: 1. No acute abdominal or pelvic abnormality. 2. Hepatic cysts. 3. Distal colon diverticulosis. Electronically signed by: Solomon Santa MD (09/15/2021 5:58 AM) [facility] DICTATED and SIGNED BY: SOLOMON SANTA MD DATE: 09/15/21 [id number] 0 Course & Med Decision Making: Course & Med Decision Making Pertinent Labs and Imaging studies reviewed. (See chart for details) Patient is 80-year-old female who presents with several weeks of increasing right upper quadrant discomfort and now with a choking sensation and reporting shortness of breath. On arrival is afebrile, hemodynamically stable, satting 100% on room air. Has a normal work of breathing and respiratory examination. She was tender to palpation of the right upper quadrant. CT abdomen/pelvis did not show any acute process, but did redemonstrate multiple hepatic cysts. Chest x-ray with some mild atelectasis of the right lung base. Labs including CBC, CMP, troponin reassuring. No chest pain to suggest ACS. EKG without ST elevation or depression. No signs/symptoms of DVT, no pleuritic pain, satting 100%, doubt PE. Work-up has been unrevealing in the ED, feel that she can follow-up with her outpatient providers. Return precautions discussed. [id number] Adi Disclaimer: Adi Disclaimer: This electronic medical record was generated, in whole or in part, using a voice recognition dictation system. Departure Departure Impression: Primary Impression: Hepatic cyst Additional Impression: Shortness of breath Disposition: HOME / SELF CARE / HOMELESS Condition: STABLE Referrals: BAO CUELLAR MD (PCP) Schedule follow-up appointment early next week Additional Instructions: Your labs, chest x-ray, and abdominal CT were reassuring. The CT did show recurrent hepatic cysts. There is no signs of strain on your heart or pneumonia. Please follow-up with your PCP early next week to ensure your symptoms are improving. If your symptoms worsen, you develop new symptoms such as chest pain, fever /chills, or other new/concerning symptoms you can return to the emergency department for reevaluation at any time. COLEEN MOREJON MD Sep 15, 2021 06:26
== END 2021-09-15 06:52 | disposition home or self-care (01) ==
LOC: ER 04:14
DX: K76.89 Other specified diseases of liver (principal); R06.02 Shortness of breath; K21.9 Gastro-esophageal reflux disease without esophagitis; I10 Essential (primary) hypertension; Z90.89 Acquired absence of other organs
CPT/HCPCS: 36415; 71045; 74177; 80053; 83690; 84484; 85025; 99285; Q9967

== ENCOUNTER 2021-12-17 04:20 | Emergency (ER) | payer OTHER, MEDICARE ==
[~2021-12-17] VITALS: Ht 162.6 cm; Wt 52.7 kg
--- NOTE | 2021-12-17 04:40 | PHYS DOC ---
Past Medical History Past Medical History: GERD, Hypertension Additional Past Medical Histor: OSTEOPOROSIS Past Surgical History: Appendectomy, Tonsillectomy Additional Past Surgical Histo: HEPATIC CYST REMOVAL Smoking Status: Never Smoker Alcohol Use: Occasionally Drug Use: None General Adult HPI: HPI: Patient is a 80 year old female who presents with several days of progressively worsening suprapubic abdominal pain, urinary urgency, frequency and dysuria. She denies vaginal discharge or bleeding. She denies back or flank pain. She denies fevers or chills. She denies nausea or vomiting. She has chronic constipation issues, which are unchanged. She is passing flatus. Just under 1 month ago, she was seen by her primary care doctor and was diagnosed with a UTI. She took a full course of cephalexin, and thereafter she felt much better. A little over a week ago, her symptoms began to return, though not as severe as they are currently, she is she submitted another urinalysis to her doctor's office. She reports that she was called several days after submission of the UA, she was told she does not have a UTI. She is begin taking [id number] Azo to help with urinary symptoms. She reports that she feels strongly that she has another UTI. Review of Systems: Review of Systems: Constitutional: Denies fever or chills. [] HENT: Denies nasal congestion or sore throat. [] Respiratory: Denies cough or shortness of breath. [] Cardiovascular: Denies chest pain or edema. [] GI: Suprapubic abdominal pain. Denies nausea, vomiting, diarrhea. Chronic and unchanged constipation. Denies melena hematochezia. : Dysuria, urgency, frequency Musculoskeletal: Denies back pain or joint pain. [] Integument: Denies rash. [] Neurologic: Denies headache, focal weakness or sensory changes. [] Psychiatric: Denies depression or anxiety. [] Heart Score: C/O Chest Pain: No Risk Factors: Risk Factors: DM, Current or recent (<one month) smoker, HTN, HLP, family history of CAD, obesity. Risk Scores: Score 0 - 3: 2.5% MACE over next 6 weeks - Discharge Home Score 4 - 6: 20.3% MACE over next 6 weeks - Admit for Clinical Observation Score 7 - 10: 72.7% MACE over next 6 weeks - Early Invasive Strategies Allergies: Allergies: Allergies Coded Allergies Type Severity Reaction Last Updated Verified No Known Drug Allergies 09/18/15 No Physical Exam: PE: Constitutional: Well developed, well nourished, no acute distress, non-toxic appearance. [] HENT: Normocephalic, atraumatic Eyes: Conjunctiva normal, no discharge. [] Neck: Normal range of motion, no tenderness, supple, no stridor. [] Cardiovascular:Heart rate regular rhythm, +2 radial and +2 posterior tibial pulses bilaterally. Lungs & Thorax: Bilateral breath sounds clear to auscultation [] Abdomen: Abdomen is soft, nondistended, minimal suprapubic tenderness to palpation, mild voluntary guarding, no rebound noticed. No right or left lower quadrant tenderness. No palpable pulsatile mass. No CVA tenderness. No flank abdominal ecchymoses. No evidence of abdominal or flank trauma. Normal bowel sounds noted. Skin: Warm, dry, no erythema, no rash. [] Back: No tenderness, no CVA tenderness. [] Extremities: No tenderness, no cyanosis, no clubbing, ROM intact, no edema. [] Neurologic: Alert and oriented X 3, normal motor function, normal sensory function, no focal deficits noted. Ambulatory with a steady gait. Psychologic: Affect normal, judgement normal, mood normal. She is pleasant and cooperative EKG: EKG: [] Radiology/Procedures: Radiology/Procedures: IMAGING REPORT Signed PATIENT: ELIZABETH DANIELS ACCOUNT: [id number] : 1940 LOCATION: ER AGE: 80 SEX: F EXAM STATUS: REG ER ORD. PHYSICIAN: MINI DU DO REASON: abdominal pain, urinary urgency and dysuria PROCEDURE: CT ABDOMEN PELVIS WO CONTRAST CT ABDOMEN+PELVIS WO INDICATION: abdominal pain, urinary urgency and dysuria EXAM: Noncontrast CT of the abdomen and pelvis. Coronal and sagittal refo rmatted images were performed. PQRS compliance statement: One or more of the following individualized dose reduction techniques were utilized for this examination: 1. Automated exposure control 2. Adjustment of the mA and/or kV according to patient size 3. Use of iterative reconstruction technique COMPARISON: 09/15/2021 FINDINGS: No free air, free fluid, or fluid collection. Lower chest: The visualized lower lungs are aerated. No pleural or pericardial effusion. ABDOMEN: Liver: Stable hepatic cysts Gallbladder and biliary: Normal gallbladder without radiopaque stone. Normal caliber bile ducts. Spleen: Normal spleen. Pancreas: The noncontrast pancreas is homogeneous in attenuation without peripancreatic inflammatory changes. Adrenal glands: Normal adrenal glands. Kidneys and ureters: No opaque urinary calculi. Normal kidneys and ureters. GI tract: The stomach is decompressed and poorly evaluated. Normal caliber small bowel and colon. Colonic diverticulosis. Normal appendix. Vascular structures: Normal caliber abdominal aorta. Lymph nodes: No lymphadenopathy in the abdomen or pelvis. PELVIS: Genitourinary system: Partially distended bladder with mild wall thickening. Uterus is present. SKELETAL STRUCTURES AND SOFT TISSUES: Degenerative changes spine. IMPRESSION: 1. Mild bladder wall thickening, which could relate to underdistention or potentially cystitis. 2. Colonic diverticulosis. Electronically signed by: Hernandez Perea MD (12/17/2021 6:18 AM) [facility] DICTATED and SIGNED BY: HERNANDEZ PEREA MD DATE: 12/17/21 [id number] 0 Course & Med Decision Making: Course & Med Decision Making Pertinent Labs and Imaging studies reviewed. (See chart for details) Patient is given IV Toradol for pain as well as a dose of IV Rocephin. I have discussed the findings, differential diagnosis and plan of care with her. Clinically she has cystitis. CT imaging confirms as much, no other acute abnormalities or life-threatening process or surgical process noted on emergency department work-up here. The patient feels much better, she is anxiously awaiting discharge home. I explained that her urine culture is pending, if there is any need to change her antibiotics based on these results, she will be contacted in about 48 hours. I recommend that she contact her PCP for follow- up. Also, she indicates that she had a history of previous urethral stricture. She has not seen urology in many years, I gave her outpatient information for urology services. Strict return precautions are given. She verbalizes understanding. She is discharged in stable condition. Susannaon Disclaimer: Adi Disclaimer: This electronic medical record was generated, in whole or in part, using a voice recognition dictation system. Departure Departure Impression: Primary Impression: Acute cystitis Disposition: 01 HOME / SELF CARE / HOMELESS Condition: STABLE Referrals: BAO CUELLAR MD (PCP) VITO COHEN MD Patient Instructions: Urinary Tract Infection Additional Instructions: Please take the full course of antibiotics as directed until they are gone. Please stay hydrated, drink plenty of water. You may continue taking your ov [id number] Azo treatment as needed for urinary discomfort. Please return to the ER for uncontrolled vomiting, severe abdominal pain, severe back or flank pain, temperature 100.4 or higher or for any other concerns. If there is any need to change your antibiotics based on your urine culture result, you should be notified within about 48 hours. Please contact your primary care doctor for follow-up. You are also being given information for outpatient urology services. Scripts Cephalexin (CEPHALEXIN) 500 Mg Tablet 1 TAB PO BID for 7 Days, #14 TAB Prov: MINI DU DO 12/17/21 MINI DU DO Dec 17, 2021 04:40
[2021-12-17 05:26] LABS: BILIRUBIN,URINE NEGATIVE (NEG); CLARITY,URINE CLEAR; COLOR,URINE ORANGE; NITRITE,URINE POSITIVE (NEG); PROTEIN,URINE NEGATIVE (NEG-TRACE)
[2021-12-17] MEDS ORDERED: KETOROLAC 15 MG/ML VIAL. IVP ONE (05:30)
[2021-12-17 05:31] LABS: BACTERIA,URINE FEW /HPF (0-FEW); RBC,URINE 0 /HPF (0-2); WBC,URINE TNTC /HPF (0-4)
[2021-12-17 05:32] LABS: CREATININE 0.8 mg/dL (0.6-1.0); GFR 69.2
[2021-12-17 05:37] LABS: ALBUMIN 3.3 g/dL (3.4-5.0); ALBUMIN/GLOBULIN RATIO 0.9 (1.0-1.7); TOTAL BILIRUBIN 0.4 mg/dL (0.2-1.0)
[2021-12-17 05:41] LABS: BASO # 0.1 x10^3/uL (0.0-0.2); BASO % 1 % (0-3); EOS # 0.2 x10^3/uL (0.0-0.7); EOS % 2 % (0-3); HEMATOCRIT 37.9 % (36.0-47.0); HEMOGLOBIN 12.3 g/dL (12.0-15.5); LYMPH # 1.8 x10^3/uL (1.0-4.8); LYMPH % 18 % (24-48); MEAN CORPUSCULAR HEMOGLOBIN 29 pg (25-35); MEAN CORPUSCULAR HGB CONC 33 g/dL (31-37); MEAN CORPUSCULAR VOLUME 90 fL (79-100); MONO # 0.7 x10^3/uL (0.0-1.1); MONO % 7 % (0-9); NEUT # 7.2 x10^3/uL (1.8-7.7); NEUT % 72 % (31-73); PLATELET COUNT 245 x10^3/uL (140-400); RED BLOOD COUNT 4.19 x10^6/uL (3.50-5.40); RED CELL DISTRIBUTION WIDTH 13.9 % (11.5-14.5)
--- NOTE | 2021-12-17 06:21 | RAD ---
CT ABDOMEN+PELVIS WO INDICATION: abdominal pain, urinary urgency and dysuria EXAM: Noncontrast CT of the abdomen and pelvis. Coronal and sagittal reformatted images were perform ed. PQRS compliance statement: One or more of the following individualized dose reduction techniques were utilized for this examinat ion: 1. Automated exposure control 2. Adjustment of the mA and/or kV according to patient size 3. Use of iterative reconstruction technique COMPARISON: 09/15/2021 FINDINGS: No free air, free fluid, or fluid collection. Lower chest: The visualized lower lungs are aerated. No pleural or pericardial effusion. ABDOMEN: Liver: Stable hepatic cysts Gallbladder and biliary: Normal gallbladder without radiopaque stone. Normal caliber bile ducts. Spleen: Normal spleen. Pancreas: The noncontrast pancreas is homogeneous in attenuation without peripancreatic inflammatory changes. Adrenal glands: Normal adrenal glands. Kidneys and ureters: No opaque urinary calculi. Normal kidneys and ureters. GI tract: The stomach is decompressed and poorly evaluated. Normal caliber small bowel and colon. Col onic diverticulosis. Normal appendix. Vascular structures: Normal caliber abdominal aorta. Lymph nodes: No lymphadenopathy in the abdomen or pelvis. PELVIS: Genitourinary system: Partially distended bladder with mild wall thickening. Uterus is present. SKELETAL STRUCTURES AND SOFT TISSUES: Degenerative changes spine. IMPRESSION: 1. Mild bladder wall thickening, which could relate to underdistention or potentially cystitis. 2. Colonic diverticulosis. Electronically signed by: Riaz Perea MD (12/17/2021 6:18 AM) [facility]
[2021-12-17] MEDS ORDERED: cefTRIAXone IV Push 1 GM VIAL. IVP ONE (06:30)
[2021-12-17] MEDS ORDERED: CEPH500T PO (07:37)
[2021-12-17 07:49] VITALS: BP 170/72
== END 2021-12-17 07:56 | disposition home or self-care (01) ==
LOC: ER 05:22
DX: N30.00 Acute cystitis without hematuria (principal); I10 Essential (primary) hypertension; K21.9 Gastro-esophageal reflux disease without esophagitis; Z90.89 Acquired absence of other organs
CPT/HCPCS: 36415; 74176; 80053; 81001; 83690; 85025; 87077; 87086; 87186; 96374; 96375; 99285; J0696; J1885

== ENCOUNTER 2021-12-29 10:59 | Inpatient (IN) | payer OTHER, MEDICARE ==
[~2021-12-29] VITALS: Ht 162.6 cm; Wt 62.4 kg
[~2021-12-29 10:59] MED LIST changes: +CEPH500T PO
[2021-12-29 12:06] LABS: BASO # 0.1 x10^3/uL (0.0-0.2); BASO % 1 % (0-3); EOS % 0 % (0-3); HEMATOCRIT 39.2 % (36.0-47.0); HEMOGLOBIN 12.6 g/dL (12.0-15.5); LYMPH # 2.2 x10^3/uL (1.0-4.8); LYMPH % 15 % (24-48); MEAN CORPUSCULAR HEMOGLOBIN 29 pg (25-35); MEAN CORPUSCULAR HGB CONC 32 g/dL (31-37); MEAN CORPUSCULAR VOLUME 90 fL (79-100); MONO # 0.8 x10^3/uL (0.0-1.1); MONO % 5 % (0-9); NEUT # 11.6 x10^3/uL (1.8-7.7); NEUT % 79 % (31-73); PLATELET COUNT 301 x10^3/uL (140-400); RED BLOOD COUNT 4.37 x10^6/uL (3.50-5.40); RED CELL DISTRIBUTION WIDTH 13.7 % (11.5-14.5); WHITE BLOOD COUNT 14.7 x10^3/uL (4.0-11.0)
[2021-12-29 12:13] LABS: CREATININE 1.2 mg/dL (0.6-1.0); GFR 43.2; POTASSIUM 4.4 mmol/L (3.5-5.1)
[2021-12-29 12:19] LABS: ALBUMIN 3.7 g/dL (3.4-5.0); ALBUMIN/GLOBULIN RATIO 0.9 (1.0-1.7); TOTAL PROTEIN 7.7 g/dL (6.4-8.2)
[2021-12-29] MEDS ORDERED: fentaNYL PF VIAL 100 MCG/2 ML VIAL IVP ONE (12:30)
[2021-12-29] MEDS ORDERED: IV NORMAL SALINE 1000ML BAG 1,000 ML IV ONE (12:30)
[2021-12-29] MEDS ORDERED: ONDANSETRON PF 4 MG/2 ML VIAL. IVP ONE (12:30)
[2021-12-29 12:32] LABS: COLOR,URINE ORANGE
[2021-12-29 12:33] LABS: CLARITY,URINE CLOUDY
[2021-12-29 12:35] LABS: BACTERIA,URINE MODERATE /HPF (0-FEW); WBC,URINE TNTC /HPF (0-4)
--- NOTE | 2021-12-29 13:38 | PHYS DOC ---
Past Medical History Past Medical History: GERD, Hypertension Additional Past Medical Histor: OSTEOPOROSIS, OSTEOARTHRITIS (CAROLYN ERAZO APRN) Past Surgical History: Appendectomy, Tonsillectomy Additional Past Surgical Histo: HEPATIC CYST REMOVAL (CAROLYN ERAZO APRN) Smoking Status: Never Smoker Alcohol Use: Occasionally Drug Use: None (CAROLYN ERAZO APRN) General Adult EDM: Chief Complaint: WEAKNESS/GENERALIZED HPI: HPI: Patient is an 81-year-old female that presents today with abdominal pain and nausea and vomiting for the last 2 days. Patient states that she was here December 17, 2021 was diagnosed with a urinary tract infection was given antibiotics for which she states she took the entire course for, she says yesterday she started having lower abdominal pain and it hurts to go to the bathroom, she said she started taking Azo [id number] but this morning she had nausea and vomiting and presents here to the emergency department for further management of this. Patient states she has a history of multiple urinary tract infections in the past and she took the entire course she does continues to get urinary tract infections. I did review her chart from December 17, looks like she was placed on cephalexin and when I reviewed the microbiology report on that it was susceptible to that. Patient denies chest pain, shortness of air, patient is having nausea and vomiting and she is actively vomiting at the bedside now. (CAROLYN ERAZO APRN) Review of Systems: Review of Systems: Constitutional: Denies fever or chills. [] Eyes: Denies change in visual acuity. [] HENT: Denies nasal congestion or sore throat. [] Respiratory: Denies cough or shortness of breath. [] Cardiovascular: Denies chest pain or edema. [] GI: Abdominal pain nausea and vomiting denies bloody stools or diarrhea. [] : dysuria. [] Musculoskeletal: Denies back pain or joint pain. [] Integument: Denies rash. [] Neurologic: Denies headache, focal weakness or sensory changes. [] Endocrine: Denies polyuria or polydipsia. [] Lymphatic: Denies swollen glands. [] Psychiatric: Denies depression or anxiety. [] (CAROLYN ERAZO APRN) Heart Score: C/O Chest Pain: N/A Risk Factors: Risk Factors: DM, Current or recent (<one month) smoker, HTN, HLP, family history of CAD, obesity. Risk Scores: Score 0 - 3: 2.5% MACE over next 6 weeks - Discharge Home Score 4 - 6: 20.3% MACE over next 6 weeks - Admit for Clinical Observation Score 7 - 10: 72.7% MACE over next 6 weeks - Early Invasive Strategies (CAROLYN ERAZO BINGO CASHIER) Current Medications: Current Medications Medications (Trade) Dose Ordered Sig/Phillip Start Time Stop Time Status Last Admin Dose Admin Fentanyl Citrate (Fentanyl 2ml Vial) 50 mcg 1X ONCE 12/29/21 12:30 12/29/21 12:31 DC 12/29/21 12:26 50 MCG Levofloxacin/ Dextrose 100 ml @ 100 mls/hr 1X ONCE 12/29/21 13:15 12/29/21 14:14 Ondansetron HCl (Zofran) 4 mg 1X ONCE 12/29/21 12:30 12/29/21 12:31 DC 12/29/21 12:25 4 MG Sodium Chloride 1,000 ml @ 500 mls/hr 1X ONCE 12/29/21 12:30 12/29/21 14:29 12/29/21 12:25 500 MLS/HR (CAROLYN ERAZO BINGO CASHIER) Allergies: Allergies: Allergies Coded Allergies Type Severity Reaction Last Updated Verified celecoxib Allergy Intermediate 12/29/21 Yes (CAROLYN ERAZO APRN) Physical Exam: PE: Constitutional: Moderate distress elderly female HENT: Normocephalic, atraumatic, bilateral external ears normal, oropharynx moist, no oral exudates, nose normal. [] Eyes: PERRLA, EOMI, conjunctiva normal, no discharge. [] Neck: Normal range of motion, no tenderness, supple, no stridor. [] Cardiovascular:Heart rate regular rhythm, no murmur [] Lungs & Thorax: Bilateral breath sounds clear to auscultation [] Abdomen: Bowel sounds normal, soft, tenderness over the symphysis pubis area, no masses, no pulsatile masses. [] Skin: Warm, dry, no erythema, no rash. [] Back: No tenderness, no CVA tenderness. [] Extremities: No tenderness, no cyanosis, no clubbing, ROM intact, no edema. [] Neurologic: Alert and oriented X 3, normal motor function, normal sensory function, no focal deficits noted. [] Psychologic: Affect normal, judgement normal, mood anxious. [] (CAROLYN ERAZO APRN) Current Patient Data: Labs: Laboratory Tests Test 12/29/21 11:45 White Blood Count 14.7 x10^3/uL (4.0-11.0) H Red Blood Count 4.37 x10^6/uL (3.50-5.40) Hemoglobin 12.6 g/dL (12.0-15.5) Hematocrit 39.2 % (36.0-47.0) Mean Corpuscular Volume 90 fL (79-100) Mean Corpuscular Hemoglobin 29 pg (25-35) Mean Corpuscular Hemoglobin Concent 32 g/dL (31-37) Red Cell Distribution Width 13.7 % (11.5-14.5) Platelet Count 301 x10^3/uL (140-400) Neutrophils (%) (Auto) 79 % (31-73) H Lymphocytes (%) (Auto) 15 % (24-48) L Monocytes (%) (Auto) 5 % (0-9) Eosinophils (%) (Auto) 0 % (0-3) Basophils (%) (Auto) 1 % (0-3) Neutrophils # (Auto) 11.6 x10^3/uL (1.8-7.7) H Lymphocytes # (Auto) 2.2 x10^3/uL (1.0-4.8) Monocytes # (Auto) 0.8 x10^3/uL (0.0-1.1) Eosinophils # (Auto) 0.0 x10^3/uL (0.0-0.7) Basophils # (Auto) 0.1 x10^3/uL (0.0-0.2) Urine Collection Type Unknown Urine Color [place] Urine Clarity Cloudy Urine pH (<5.0-8.0) Urine Specific [place] (1.000-1.030) Urine Protein mg/dL (NEG-TRACE) Urine Glucose (UA) mg/dL (NEG) Urine Ketones (Stick) mg/dL (NEG) Urine Blood (NEG) Urine Nitrite (NEG) Urine Bilirubin (NEG) Urine Urobilinogen Dipstick mg/dL (0.2 mg/dL) Urine Leukocyte Esterase (NEG) Urine RBC 3-5 /HPF (0-2) Urine WBC Tntc /HPF (0-4) Urine Squamous Epithelial Cells Few /LPF Urine Bacteria Moderate /HPF (0-FEW) Sodium Level 139 mmol/L (136-145) Potassium Level 4.4 mmol/L (3.5-5.1) Chloride Level 102 mmol/L (98-107) Carbon Dioxide Level 24 mmol/L (21-32) Anion Gap 13 (6-14) Blood Urea Nitrogen 21 mg/dL (7-20) H Creatinine 1.2 mg/dL (0.6-1.0) H Estimated GFR (Cockcroft-Gault) 43.2 BUN/Creatinine Ratio 18 (6-20) Glucose Level 103 mg/dL (70-99) H Calcium Level 9.0 mg/dL (8.5-10.1) Total Bilirubin 1.0 mg/dL (0.2-1.0) Aspartate Amino Transferase (AST) 21 U/L (15-37) Alanine Aminotransferase (ALT) 15 U/L (14-59) Alkaline Phosphatase 54 U/L (46-116) Total Protein 7.7 g/dL (6.4-8.2) Albumin 3.7 g/dL (3.4-5.0) Albumin/Globulin Ratio 0.9 (1.0-1.7) L Laboratory Tests 12/29/21 11:45 Laboratory Tests 12/29/21 11:45 Vital Signs: Vital Signs Date Time Temp Pulse Resp B/P (MAP) Pulse Ox O2 Delivery O2 Flow Rate FiO2 12/29/21 15:45 97.4 75 20 123/62 (82) 97 Room Air 97.4 12/29/21 14:54 76 130/70 (90) 98 Room Air 12/29/21 14:24 72 138/72 (94) 94 Room Air 12/29/21 13:54 72 139/63 (88) 97 Room Air 12/29/21 13:24 74 127/73 (91) 98 Room Air 12/29/21 12:26 16 94 Room Air 12/29/21 11:35 74 120/57 (78) 98 Room Air 12/29/21 11:15 97.8 90 18 118/66 (83) 96 Room Air 97.8 Vital Signs Date Time Temp Pulse Resp B/P (MAP) Pulse Ox O2 Delivery O2 Flow Rate FiO2 12/29/21 12:26 16 94 Room Air 12/29/21 11:15 97.8 90 118/66 (83) 97.8 (CAROLYN ERAZO APRN) EKG: EKG: [] (CAROLYN ERAZO APRN) Radiology/Procedures: Radiology/Procedures: [] (CAROLYN ERAZO APRN) Course & Med Decision Making: Course & Med Decision Making Pertinent Labs and Imaging studies reviewed. (See chart for details) [address] Benjamin the hospitalist up regarding this patient's case with her past urinary tract infection just 13 days ago plus the increase in her white count and that her urine does have numerous white cells we will admit the patient for further management of her urinary tract infection, we will give a dose of Levaquin while here in the emergency department, Dr. Mcarthur is agreeable to admitting this patient for further management of her UTI. (CAROLYN ERAZO BINGO CASHIER) Dragon Disclaimer: Dragon Disclaimer: This electronic medical record was generated, in whole or in part, using a voice recognition dictation system. (CAROLYN ERAZO BINGO CASHIER) Departure Departure Impression: Primary Impression: Urinary tract infection Qualified Codes: N30.01 - Acute cystitis with hematuria Additional Impressions: Leukocytosis Qualified Codes: D72.829 - Elevated white blood cell count, unspecified Abdominal pain Qualified Codes: R10.30 - Lower abdominal pain, unspecified Disposition: ADMITTED INPATIENT Admitting Physician: DESHAUN (CAROLYN ERAZO BINGO CASHIER) Condition: STABLE Referrals: BAO CUELLAR MD (PCP) Scripts Amoxicillin/Potassium Clav (AMOX TR-K CLV 500-125 MG TAB) 1 Each Tablet 1 TAB PO BID for UTI for 3 Days, #6 TAB Prov: JOHN CRAIN MD 01/02/22 Lactobacillus Rhamnosus Gg (CULTURELLE) 1 Each Cap.sprink 1 CAP PO BID for UTI for 14 Days, #28 CAP Prov: JOHN CRAIN MD 01/02/22 Estradiol (ESTRACE) 42.5 Gm Cream.appl 1 GM VG 3X/WEEK for atropic vaginitis, #1 EACH 11 Refills Prov: GRISELDAJAY Jessy PA 01/01/22 Attending Signature Attending Signature I have reviewed the PA/STOVE MOUNTER's note and plan of care. I was available for consultation as needed during the patient's visit in the emergency department. I agree with the clinical impression, plan, and disposition. (STEVO TERRY DO) CAROLYN ERAZO BINGO CASHIER Dec 29, 2021 13:38 STEVO TERRY DO Jan 03, 2022 17:21
[2021-12-29] MEDS ORDERED: ONDANSETRON PF 4 MG/2 ML VIAL. IVP PRN (13:45)
[2021-12-29] MEDS ORDERED: ACETAMINOPHEN 325 MG TABLET. PO PRN (13:45)
[2021-12-29 15:45] VITALS: BP 123/62
[2021-12-29] MEDS ORDERED: ACETAMINOPHEN 500 MG TABLET PO PRN (17:00)
[2021-12-29] MEDS ORDERED: ONDANSETRON ODT 4 MG TAB.RAPDIS. PO PRN (17:00)
[2021-12-29] MEDS ORDERED: HYDROcodone/APAP 5/325MG 1 TAB TABLET PO PRN ×2 (17:00→20:00)
--- NOTE | 2021-12-29 17:20 | HP ---
DATE OF SERVICE: 12/29/2021 ADMIT DATE: 12/29/2021 CHIEF COMPLAINT: Weakness, abdominal pain, nausea, recent UTI. HISTORY OF PRESENT ILLNESS: The patient is a pleasant 81-year-old female who was treated here on 12/17 for UTI. She was given antibiotics and sent home. Now, she has developed some weakness and some nausea. We checked her labs. She does seem to have a persistent UTI. I discussed the case with the ER physician. We are going to admit the patient, give her IV antibiotics and fluids. PAST MEDICAL HISTORY: UTI, GERD, hypertension, osteoporosis, osteoarthritis, appendectomy, tonsillectomy, hepatic cyst. ALLERGIES: CELEBREX. FAMILY HISTORY: Hypertension. SOCIAL HISTORY: She never took drugs or smoke. She drinks socially. She is retired. MEDICATIONS: Reviewed. Please refer to the MRAD. REVIEW OF SYSTEMS: GENERAL: She complains of weakness. SKIN: No bruising, hair changes or rashes. EYES: No blurred, double or loss of vision. NOSE AND THROAT: No history of nosebleeds, hoarseness or sore throat. HEART: No history of palpitations, chest pain or shortness of breath on exertion. LUNGS: Denies cough, hemoptysis, wheezing or shortness of breath. GASTROINTESTINAL: She complains of nausea. GENITOURINARY: No history of frequency, urgency, hesitancy or nocturia. NEUROLOGIC: Denies history of numbness, tingling, tremor or weakness. PSYCHIATRIC: No history of panic, anxiety or depression. ENDOCRINE: No history of heat or cold intolerance, polyuria or polydipsia. EXTREMITIES: Denies muscle weakness, joint pain, pain on walking or stiffness. PHYSICAL EXAMINATION: VITALS: Within normal limits and are stable. GENERAL: She is very weak, on the commode. HEENT: Normal cephalic atraumatic, external auditory canals are patent. EYES: Extraocular muscles are intact, pupils are equally round and reactive to light and accommodation. MUSCULOSKELETAL: Well developed, well nourished, good range of motion. ENDOCRINE: No thyromegaly was palpated. LYMPHATICS: No cervical chain or axillary nodes were noted. HEMATOPOIETIC: No bruising. NECK: Supple, no JVD, no thyromegaly was noted. LUNGS: Clear to auscultation in all lung de leon without rhonchi or wheezing. HEART: RRR, S1, S2 present. Peripheral pulses intact, no obvious murmurs were noted. ABDOMEN: Soft, nontender. Positive bowel sounds no organomegaly, normal bowel sounds. EXTREMITIES: Without any cyanosis, clubbing, or edema. Pedal pulses intact, Homans sign is negative. NEUROLOGIC: She is very weak, on the commode. PSYCHIATRIC: She is very weak, on the commode. SKIN: No ulcerations or rashes, good skin turgor, no jaundice. VASCULAR: Good capillary refill, neurovascular bundle appears to be intact. LABORATORY DATA: White count 14.7. ASSESSMENT AND PLAN: Urinary tract infection with sepsis with leukocytosis. The patient has been admitted. We will give IV antibiotics, IV fluids, home meds. Deep venous thrombosis prophylaxis. Full code. Physical therapy, occupational therapy. Suspect she may need residential. BRUNO DR: Johana TID: [id number]
[2021-12-29] MEDS: IV NORMAL SALINE 1000ML BAG 1,000 ML IV SCH (17:49)
[2021-12-29 19:00] VITALS: BP 121/46
[2021-12-29] MEDS: ALPRAZolam 0.25 MG TABLET PO SCH (21:26)
[2021-12-29 23:00] VITALS: BP 129/55
[2021-12-30 03:00] VITALS: BP 137/60
[2021-12-30] MEDS: IV NORMAL SALINE 1000ML BAG 1,000 ML IV SCH ×2 (06:21→21:03)
[2021-12-30 07:00] VITALS: BP 126/56
[2021-12-30] MEDS: ALPRAZolam 0.25 MG TABLET PO SCH ×2 (08:50→21:04)
[2021-12-30] MEDS: LISINOPRIL 20 MG TABLET PO SCH (08:50)
[2021-12-30] MEDS: CIPROFLOXACIN 200MG PREMIX 100 ML IV SCH ×2 (08:51→21:04)
[2021-12-30 11:00] VITALS: BP 128/58
--- NOTE | 2021-12-30 12:02 | PDOC ---
[facility] [facility] PROGRESS NOTE Date of Service DOS: DATE: 12/30/21 TIME: 11:25 Chief Complaint Chief Complaint Urinary tract infection with sepsis with leukocytosis. The patient has been admitted. We will give IV antibiotics, IV fluids, home meds. Deep venous thrombosis prophylaxis. Full code. Physical therapy, occupational therapy. Suspect she may need senior care. History of Present Illness History of Present Illness Ms Ayala is an 81-year-old female with PMHx UTI, GERD, hypertension, osteoporosis, osteoarthritis who was treated here on 12/17 for UTI. She was given antibiotics and sent home. Now, she has developed some weakness and some nausea. We checked her labs. She does seem to have a persistent UTI. I discussed the case with the ER physician. We are going to admit the patient, give her IV antibiotics and fluids. 12/30: Suprapubic pain is still present. Urine looks like it 100,000 colony- forming units of E. coli sensitivities pending. She has been struggling with intermittent constipation and diarrhea. She does note historically in her 30s she had to have urethral dilation and is asking if she needs to be seen by urology while she is in the hospital Vitals/I&O Vitals/I&O: Vital Signs Date Time Temp Pulse Resp B/P (MAP) Pulse Ox O2 Delivery O2 Flow Rate FiO2 12/30/21 11:00 97.9 80 16 128/58 (81) 96 Room Air 97.9 Physical Exam General: Alert, Cooperative Heart: Regular rate, Normal S1, Normal S2 Lungs: Clear Labs Labs: Laboratory Tests Test 12/29/21 11:45 12/29/21 13:57 White Blood Count 14.7 x10^3/uL (4.0-11.0) Red Blood Count 4.37 x10^6/uL (3.50-5.40) Hemoglobin 12.6 g/dL (12.0-15.5) Hematocrit 39.2 % (36.0-47.0) Mean Corpuscular Volume 90 fL (79-100) Mean Corpuscular Hemoglobin 29 pg (25-35) Mean Corpuscular Hemoglobin Concent 32 g/dL (31-37) Red Cell Distribution Width 13.7 % (11.5-14.5) Platelet Count 301 x10^3/uL (140-400) Neutrophils (%) (Auto) 79 % (31-73) Lymphocytes (%) (Auto) 15 % (24-48) Monocytes (%) (Auto) 5 % (0-9) Eosinophils (%) (Auto) 0 % (0-3) Basophils (%) (Auto) 1 % (0-3) Neutrophils # (Auto) 11.6 x10^3/uL (1.8-7.7) Lymphocytes # (Auto) 2.2 x10^3/uL (1.0-4.8) Monocytes # (Auto) 0.8 x10^3/uL (0.0-1.1) Eosinophils # (Auto) 0.0 x10^3/uL (0.0-0.7) Basophils # (Auto) 0.1 x10^3/uL (0.0-0.2) Urine Collection Type Unknown Urine Color [place] Urine Clarity Cloudy Urine pH (<5.0-8.0) Urine Specific [place] (1.000-1.030) Urine Protein mg/dL (NEG-TRACE) Urine Glucose (UA) mg/dL (NEG) Urine Ketones (Stick) mg/dL (NEG) Urine Blood (NEG) Urine Nitrite (NEG) Urine Bilirubin (NEG) Urine Urobilinogen Dipstick mg/dL (0.2 mg/dL) Urine Leukocyte Esterase (NEG) Urine RBC 3-5 /HPF (0-2) Urine WBC Tntc /HPF (0-4) Urine Squamous Epithelial Cells Few /LPF Urine Bacteria Moderate /HPF (0-FEW) Sodium Level 139 mmol/L (136-145) Potassium Level 4.4 mmol/L (3.5-5.1) Chloride Level 102 mmol/L (98-107) Carbon Dioxide Level 24 mmol/L (21-32) Anion Gap 13 (6-14) Blood Urea Nitrogen 21 mg/dL (7-20) Creatinine 1.2 mg/dL (0.6-1.0) Estimated GFR (Cockcroft-Gault) 43.2 BUN/Creatinine Ratio 18 (6-20) Glucose Level 103 mg/dL (70-99) Calcium Level 9.0 mg/dL (8.5-10.1) Total Bilirubin 1.0 mg/dL (0.2-1.0) Aspartate Amino Transf (AST/SGOT) 21 U/L (15-37) Alanine Aminotransferase (ALT/SGPT) 15 U/L (14-59) Alkaline Phosphatase 54 U/L (46-116) Total Protein 7.7 g/dL (6.4-8.2) Albumin 3.7 g/dL (3.4-5.0) Albumin/Globulin Ratio 0.9 (1.0-1.7) Coronavirus (COVID-19)(PCR) Not detected (NOT DETECTD) SARS-CoV-2 Antigen (Rapid) Negative (NEGATIVE) Assessment and Plan Assessmemt and Plan Problems Medical Problems: (1) Abdominal pain Status: Acute (2) Leukocytosis Status: Acute (3) Urinary tract infection Status: Acute Comment Review of Relevant I have reviewed the following items lissa (where applicable) has been applied. Medications: Current Medications Medications (Trade) Dose Ordered Sig/Phillip Route PRN Reason Start Time Stop Time Status Last Admin Dose Admin Ondansetron HCl (Zofran) 4 mg 1X ONCE IVP 12/29/21 12:30 12/29/21 12:31 DC 12/29/21 12:25 Fentanyl Citrate (Fentanyl 2ml Vial) 50 mcg 1X ONCE IVP 12/29/21 12:30 12/29/21 12:31 DC 12/29/21 12:26 Sodium Chloride 1,000 ml @ 500 mls/hr 1X ONCE IV 12/29/21 12:30 12/29/21 14:29 DC 12/29/21 12:25 Levofloxacin/ Dextrose 100 ml @ 100 mls/hr 1X ONCE IV 12/29/21 13:15 12/29/21 14:14 DC 12/29/21 13:52 Acetaminophen (Tylenol) 650 mg PRN Q4HRS PRN PO FEVER > 100.3'F 12/29/21 13:45 12/30/21 13:44 12/29/21 17:48 Sodium Chloride 1,000 ml @ 75 mls/hr [id number] IV 12/29/21 17:00 12/30/21 06:21 Ciprofloxacin/ Dextrose 100 ml @ 100 mls/hr Q12HR IV 12/30/21 09:00 12/30/21 08:51 Alprazolam (Xanax) 0.25 mg BID PO 12/29/21 21:00 12/30/21 08:50 Lisinopril (Prinivil) 40 mg DAILY PO 12/30/21 09:00 12/30/21 08:50 Justifications for Admission Other Justification BREANN,JOHN Vargas MD Dec 30, 2021 12:02
[2021-12-30 15:00] VITALS: BP 129/59
[2021-12-30 19:00] VITALS: BP 138/70
[2021-12-30] MEDS: LACTOBACILLUS RHAMNOSUS GG 1 CAPSULE. PO SCH (21:04)
[2021-12-30 23:00] VITALS: BP 136/68
[2021-12-31 03:00] VITALS: BP 106/67
[2021-12-31 07:00] VITALS: BP_SYST 113; BP_SYST 129; BP_DIAS 55; BP_DIAS 69
[2021-12-31] MEDS: LISINOPRIL 20 MG TABLET PO SCH (08:59)
[2021-12-31] MEDS: LACTOBACILLUS RHAMNOSUS GG 1 CAPSULE. PO SCH ×2 (08:59→21:17)
[2021-12-31] MEDS: ALPRAZolam 0.25 MG TABLET PO SCH (09:00)
[2021-12-31] MEDS: CIPROFLOXACIN 200MG PREMIX 100 ML IV SCH ×2 (09:01→21:00)
[2021-12-31] MEDS: IV NORMAL SALINE 1000ML BAG 1,000 ML IV SCH ×2 (09:01→22:20)
[2021-12-31 11:00] VITALS: BP 151/67
--- NOTE | 2021-12-31 11:23 | PDOC ---
[facility] [facility] PROGRESS NOTE Date of Service DOS: DATE: 12/31/21 TIME: 11:23 Chief Complaint Chief Complaint Urinary tract infection with sepsis with leukocytosis. Constipation Weakness and debility HTN The patient has been admitted. We will give IV antibiotics, IV fluids, home meds. Deep venous thrombosis prophylaxis. Full code. Physical therapy, occupational therapy. Suspect she may need long-term. History of Present Illness History of Present Illness Ms Ayala is an 81-year-old female with PMHx UTI, GERD, hypertension, osteoporosis, osteoarthritis who was treated here on 12/17 for UTI. She was given antibiotics and sent home. Now, she has developed some weakness and some nausea. We checked her labs. She does seem to have a persistent UTI. I discussed the case with the ER physician. We are going to admit the patient, give her IV antibiotics and fluids. 12/30: Suprapubic pain is still present. Urine looks like it 100,000 colony- forming units of E. coli sensitivities pending. She has been struggling with in termittent constipation and diarrhea. She does note historically in her 30s she had to have urethral dilation and is asking if she needs to be seen by urology while she is in the hospital. 12/31: Still with some suprapubic pain and nausea today. Started a bowel movement starting bowel regimen today. Working with physical and Occupational Therapy very weak. Vitals/I&O Vitals/I&O: Vital Signs Date Time Temp Pulse Resp B/P (MAP) Pulse Ox O2 Delivery O2 Flow Rate FiO2 12/31/21 08:59 74 129/69 12/31/21 07:38 Room Air 12/31/21 07:00 98.4 18 97 98.4 Physical Exam General: Alert, Cooperative Heart: Regular rate, Normal S1, Normal S2 Lungs: Clear Assessment and Plan Assessmemt and Plan Problems Medical Problems: (1) Abdominal pain Status: Acute (2) Leukocytosis Status: Acute (3) Urinary tract infection Status: Acute Comment Review of Relevant I have reviewed the following items lissa (where applicable) has been applied. Medications: Current Medications Medications (Trade) Dose Ordered Sig/Phillip Route PRN Reason Start Time Stop Time Status Last Admin Dose Admin Lactobacillus Rhamnosus (Culturelle) 1 cap BID PO 12/30/21 21:00 12/31/21 08:59 Justifications for Admission Other Justification JOHN CRAIN MD Dec 31, 2021 11:23
[2021-12-31] MEDS ORDERED: SENNOSIDES/DOCUSATE 8.6/50MG TABLET. PO PRN (11:45)
[2021-12-31] MEDS ORDERED: ALPRAZolam 0.25 MG TABLET PO PRN (11:45)
[2021-12-31] MEDS: POLYETHYLENE GLYCOL 3350 17 GM PACKET. PO SCH (12:30)
[2021-12-31 15:00] VITALS: BP 135/57
[2021-12-31 19:00] VITALS: BP 147/77
[2021-12-31] MEDS: PSYLLIUM HUSK (SUGAR FREE) 1 PKT PACKET PO SCH (21:00)
[2021-12-31 23:00] VITALS: BP 164/76
[2022-01-01 03:00] VITALS: BP 148/69
[2022-01-01 07:15] VITALS: BP 152/74
[2022-01-01] MEDS: POLYETHYLENE GLYCOL 3350 17 GM PACKET. PO SCH (08:49)
[2022-01-01] MEDS: LACTOBACILLUS RHAMNOSUS GG 1 CAPSULE. PO SCH ×2 (08:49→20:46)
[2022-01-01] MEDS: AMOXICILLIN/K CLAV 500/125MG TABLET. PO SCH ×2 (08:49→20:46)
[2022-01-01] MEDS: LISINOPRIL 20 MG TABLET PO SCH (08:50)
[2022-01-01] MEDS ORDERED: AMLO-186 PO (08:52)
[2022-01-01] MEDS ORDERED: ESCITALOPRAM OX10 MG PO (08:52)
--- NOTE | 2022-01-01 09:21 | NUR ---
Post void residual 70cc per bladder scanner.
[2022-01-01 10:59] VITALS: BP 115/55
--- NOTE | 2022-01-01 11:14 | PDOC ---
[facility] [facility] PROGRESS NOTE Date of Service DOS: DATE: 01/01/22 TIME: 11:14 Chief Complaint Chief Complaint Urinary tract infection with sepsis with leukocytosis. Constipation Weakness and debility HTN The patient has been admitted. Full code. Physical therapy, occupational therapy - home health History of Present Illness History of Present Illness Ms Ayala is an 81-year-old female with PMHx UTI, GERD, hypertension, osteoporosis, osteoarthritis who was treated here on 12/17 for UTI. She was given antibiotics and sent home. Now, she has developed some weakness and some nausea. We checked her labs. She does seem to have a persistent UTI. I discussed the case with the ER physician. We are going to admit the patient, give her IV antibiotics and fluids. 12/30: Suprapubic pain is still present. Urine looks like it 100,000 colony- forming units of E. coli sensitivities pending. She has been struggling with intermittent constipation and diarrhea. She does note historically in her 30s she had to have urethral dilation and is asking if she needs to be seen by urology while she is in the hospital. 12/31: Still with some suprapubic pain and nausea today. Started a bowel movement starting bowel regimen today. Working with physical and Occupational Therapy very weak. 01/01: Had a little bit of nausea today asking for diet to be advanced. Transition to oral antibiotics. Still complains of no bowel movement refused Metamucil. Vitals/I&O Vitals/I&O: Vital Signs Date Time Temp Pulse Resp B/P (MAP) Pulse Ox O2 Delivery O2 Flow Rate FiO2 01/01/22 10:59 98.4 68 18 115/55 (75) 94 Room Air 98.4 Physical Exam General: Alert, Cooperative Heart: Regular rate, Normal S1, Normal S2 Lungs: Clear Assessment and Plan Assessmemt and Plan Problems Medical Problems: (1) Abdominal pain Status: Acute (2) Leukocytosis Status: Acute (3) Urinary tract infection Status: Acute Comment Review of Relevant I have reviewed the following items lissa (where applicable) has been applied. Medications: Current Medications Medications (Trade) Dose Ordered Sig/Phillip Route PRN Reason Start Time Stop Time Status Last Admin Dose Admin Alprazolam (Xanax) 0.25 mg PRN BID PRN PO anxiety 12/31/21 11:45 12/31/21 21:17 Psyllium Hydrophilic Mucilloid (Metamucil Fiber Packet) 1 pkt QHS PO 12/31/21 21:00 12/31/21 21:00 Polyethylene Glycol (miraLAX PACKET) 17 gm DAILY PO 12/31/21 12:30 01/01/22 08:49 Amoxicillin/ Clavulanate Potassium (Augmentin 500/ 125mg) 1 tab BID PO 01/01/22 09:00 01/02/22 21:01 01/01/22 08:49 Justifications for Admission Other Justification JOHN CRAIN MD Jan 01, 2022 11:14
[2022-01-01] MEDS: IV NORMAL SALINE 1000ML BAG 1,000 ML IV SCH (11:40)
[2022-01-01] MEDS ORDERED: ONDANSETRON PF 4 MG/2 ML VIAL. IVP PRN (11:45)
--- NOTE | 2022-01-01 11:50 | NUR ---
SW following. Discussed with RN, pt from home with son, room air, regular diet. Pt needs a BM prior to discharge. Therapy recommending home health. Possible discharge in the next day or so. SW will continue to follow.
[2022-01-01] MEDS ORDERED: MAGNESIUM CITRATE 296 ML SOLUTION. PO ONE (12:30)
[2022-01-01 14:59] VITALS: BP 146/64
--- NOTE | 2022-01-01 15:38 | PDOC2 ---
UROLOGY CONSULT Date of Service DATE: 01/01/22 TIME: 15:20 Reason for Consult Reason for Consult: recurrent UTI Identification/Chief Complaint Chief Complaint recurrent UTI Source Source: Chart review, Patient History of Present Illness Reason for Visit: 81yo female admitted for recurrent UTI. She states that in November she had a UTI, was admitted for [facility]. A few days after this she began experiencing symptoms again, for which she was treated once more. She was recently admitted again to [facility] for UTI which she is currently being treated for. She states that UTI symptoms are dysuria, urgency, frequency, bladder pain. Denies fever, hematuria with this. Is starting to have some improvement in symptoms today. States in her 30s she was having urinary symptoms, saw a urologist, and required urethral dilation due to "scar tissue" at the time. CT a/p showed no acute abnormalities aside from "mild wall thickening". She does have intermittent issues with constipation Past Medical History Cardiovascular: HTN GI: GERD Renal/: UTI Past Surgical History Past Surgical History: No pertinent history Family History Family History: Hypertension Social History No ALCOHOL: none Drugs: None Current Medications Current Medications Current Medications Amoxicillin/ Clavulanate Potassium (Augmentin 500/ 125mg) 1 tab BID PO Last administered on 01/01/22at 08:49; Start 01/01/22 at 09:00; Stop 01/02/22 at 21:01 Magnesium Citrate (Citroma) 296 ml 1X ONCE PO Last administered on 01/01/22at 12:30; Start 01/01/22 at 12:30; Stop 01/01/22 at 12:31; Status DC Ondansetron HCl (Zofran) 4 mg PRN Q6HRS PRN IVP NAUSEA/VOMITING; Start 01/01/22 at 11:45 Psyllium Hydrophilic Mucilloid (Metamucil Fiber Packet) 1 pkt QHS PO Last administered on 12/31/21at 21:00; Start 12/31/21 at 21:00 Allergies Allergies: Coded Allergies: celecoxib (Verified Allergy, Intermediate, 12/29/21) ROS Review Of Systems: CONSTITUTIONAL: No fever or chills EYES: No recent changes SKIN: No rash or itching CARDIOVASCULAR: No chest pain, syncope, palpitations, or edema RESPIRATORY: No SOB or cough GASTROINTESTINAL: No nausea, vomiting or abdominal pain NEUROLOGICAL: No headaches or weakness ENDOCRINE: No cold or heat intolerance GENITOURINARY: No urgency or frequency of urination MUSCULOSKELETAL: No back pain or joint pain LYMPHATICS: No enlarged lymph nodes PSYCHIATRIC: No anxiety or depression Physical Exam Physical Exam: General: Pleasant, no acute distress, well groomed Eyes: conjunctiva anicteric, eyes full range of motion ENT: moist oral mucosa, normal dentition Neck: Trachea midline, no masses Respiratory: unlabored breathing, not using accessory muscles, no crackles or wheezes Cardiovascular: Regular rate and rhythm, no peripheral edema Abdomen: nontender, nondistended, no hepatosplenomegaly, no masses Skin: no rashes or skin lesions on visualized skin Psych: normal mood, affect. Alert and oriented x 3. Vitals VITALS Vital Signs Date Time Temp Pulse Resp B/P (MAP) Pulse Ox O2 Delivery O2 Flow Rate FiO2 01/01/22 14:59 98.6 75 18 146/64 (91) 96 Room Air 98.6 Assessment/Plan Assessment/Plan Recurrent UTIs Discussed prevention methods--probiotics, cranberry tablets, increased hydration, d-mannose, estrogen cream We will start topical estrogen cream 3x/wk, this will take maximum effect over 4mos She will start probiotic and d-mannose If continues to recur, we will consider starting daily low dose antibiotics, she is hesitant to start now due to risk of s/e which is reasonable. Hx urethral dilation PVR 70mL which is acceptable. She may f/u in clinic for cystoscopy for evaluate on non-urgent basis, suspect she does not need repeated dilation. JAY VILLALOBOS Jan 01, 2022 15:38
[2022-01-01] MEDS ORDERED: ESTR42.53 VG (15:40)
[2022-01-01 19:00] VITALS: BP 111/54
[2022-01-01] MEDS: PSYLLIUM HUSK (SUGAR FREE) 1 PKT PACKET PO SCH (20:46)
[2022-01-01 23:00] VITALS: BP 136/75
[2022-01-02] MEDS: IV NORMAL SALINE 1000ML BAG 1,000 ML IV SCH (01:19)
[2022-01-02 03:00] VITALS: BP 136/61
[2022-01-02 07:00] VITALS: BP 157/67
[2022-01-02] MEDS: POLYETHYLENE GLYCOL 3350 17 GM PACKET. PO SCH (09:00)
[2022-01-02] MEDS: AMOXICILLIN/K CLAV 500/125MG TABLET. PO SCH (09:37)
[2022-01-02] MEDS: LACTOBACILLUS RHAMNOSUS GG 1 CAPSULE. PO SCH (09:37)
[2022-01-02] MEDS: LISINOPRIL 20 MG TABLET PO SCH (09:38)
[2022-01-02 11:00] VITALS: BP 154/75
[2022-01-02] MEDS ORDERED: AMOX1TAB10 PO (12:23)
[2022-01-02] MEDS ORDERED: LACT1CAP19 PO (12:23)
--- NOTE | 2022-01-02 12:25 | PDOC ---
[employer] PROGRESS NOTE Date of Service DOS: DATE: 01/02/22 TIME: 12:24 Chief Complaint Chief Complaint Urinary tract infection with sepsis with leukocytosis. Constipation Weakness and debility HTN Atrophic vaginitis - Topical estrogen cream 3x/wk, this will take maximum effect over 4mos. Urology follow up outpatient Recurrent UTI - Urology f/u, start probiotic and d-mannose The patient has been admitted. Full code. Physical therapy, occupational therapy - home health History of Present Illness History of Present Illness Ms Ayala is an 81-year-old female with PMHx UTI, GERD, hypertension, osteoporosis, osteoarthritis who was treated here on 12/17 for UTI. She was given antibiotics and sent home. Now, she has developed some weakness and some nausea. We checked her labs. She does seem to have a persistent UTI. I discussed the case with the ER physician. We are going to admit the patient, give her IV antibiotics and fluids. 12/30: Suprapubic pain is still present. Urine looks like it 100,000 colony- forming units of E. coli sensitivities pending. She has been struggling with intermittent constipation and diarrhea. She does note historically in her 30s she had to have urethral dilation and is asking if she needs to be seen by urology while she is in the hospital. 12/31: Still with some suprapubic pain and nausea today. Started a bowel movement starting bowel regimen today. Working with physical and Occupational Therapy very weak. 01/01: Had a little bit of nausea today asking for diet to be advanced. Transition to oral antibiotics. Still complains of no bowel movement refused Metamucil. Vitals/I&O Vitals/I&O: Vital Signs Date Time Temp Pulse Resp B/P (MAP) Pulse Ox O2 Delivery O2 Flow Rate FiO2 01/02/22 11:00 98.2 73 16 154/75 (101) 95 Room Air 98.2 Physical Exam General: Alert, Cooperative Heart: Regular rate, Normal S1, Normal S2 Lungs: Clear Assessment and Plan Assessmemt and Plan Problems Medical Problems: (1) Abdominal pain Status: Acute (2) Leukocytosis Status: Acute (3) Urinary tract infection Status: Acute Comment Review of Relevant I have reviewed the following items lissa (where applicable) has been applied. Medications: Current Medications Medications (Trade) Dose Ordered Sig/Phillip Route PRN Reason Start Time Stop Time Status Last Admin Dose Admin Magnesium Citrate (Citroma) 296 ml 1X ONCE PO 01/01/22 12:30 01/01/22 12:31 DC 01/01/22 12:30 Justifications for Admission Other Justification JOHN CRAIN MD Jan 02, 2022 12:25
--- NOTE | 2022-01-02 12:28 | PDOC3 ---
Discharge Summary Visit Information Date of Admission: Dec 29, 2021 Date of Discharge: Jan 02, 2022 Admitting Diagnosis: Intractable abdominal pain Final Diagnosis Problems Medical Problems: (1) Abdominal pain Status: Acute (2) Leukocytosis Status: Acute (3) Urinary tract infection Status: Acute Brief Hospital Course Allergies Allergies Coded Allergies Type Severity Reaction Last Updated Verified celecoxib Allergy Intermediate 12/29/21 Yes Vital Signs Vital Signs Date Time Temp Pulse Resp B/P (MAP) Pulse Ox O2 Delivery O2 Flow Rate FiO2 01/02/22 11:00 98.2 73 16 154/75 (101) 95 Room Air 98.2 Brief Hospital Course Ms Ayala is an 81-year-old female with PMHx UTI, GERD, hypertension, osteoporosis, osteoarthritis who was treated here on 12/17 for UTI. She was given antibiotics and sent home. Now, she has developed some weakness and some nausea. We checked her labs. She does seem to have a persistent UTI. I discussed the case with the ER physician. Admitted the patient, give her IV antibiotics and fluids. 12/30: Suprapubic pain is still present. Urine looks like it 100,000 colony- forming units of E. coli sensitivities pending. She has been struggling with intermittent constipation and diarrhea. She does note historically in her 30s she had to have urethral dilation and is asking if she needs to be seen by urology while she is in the hospital. 12/31: Still with some suprapubic pain and nausea today. Started a bowel movement starting bowel regimen today. Working with physical and Occupational Therapy very weak. 01/01: Had a little bit of nausea today asking for diet to be advanced. Transition to oral antibiotics. Still complains of no bowel movement refused Metamucil. Had multiple bowel movements after taking magnesium citrate. Seen by urology and recommended to start d-mannose cranberry and treat atrophic vaginitis with thrice weekly topical estrogen and follow-up outpatient. Consults: Urology PE: VS stable HEENT: Head normocephalic, atraumatic. NECK: Supple LUNGS: Clear to auscultation. HEART: RRR, S1, S2 present, pulses intact ABDOMEN: Soft, positive bowel sounds. EXTREMITIES: No cyanosis or edema. NEUROLOGIC: Normal speech, normal tone PSYCHIATRIC: Normal affect, normal mood. SKIN: No ulceration. Problem list: Urinary tract infection with sepsis with leukocytosis. Constipation Weakness and debility HTN Atrophic vaginitis - Topical estrogen cream 3x/wk, this will take maximum effect over 4mos. Urology follow up outpatient Recurrent UTI - Urology f/u, start probiotic and d-mannose Full code. Physical therapy, occupational therapy - home health Greater than 30 minutes spent on d/c home Discharge Information Condition at Discharge: Improved Follow Up: Weeks (1) Disposition/Orders: D/C to Home Scheduled Amlodipine Besylate (Amlodipine Besylate) 5 Mg Tablet, 5 MG PO DAILY for HTN, (Reported) Entered as Reported by: ANGELITO FIGUEROA on 01/01/22851 Last Action: Reviewed on 01/01/22852 by ANGELITO FIGUEROA Amoxicillin/Potassium Clav (Amox Tr-K Clv 500-125 Mg Tab) 1 Each Tablet, 1 TAB PO BID for UTI for 3 Days, #6 Prescribed by: JOHN CRAIN MD on 01/02/22 1223 Escitalopram Oxalate (Escitalopram Oxalate) 10 Mg Tablet, 1 TAB PO DAILY for unk, #30 Ref 3 (Reported) Entered as Reported by: ANGELITO FIGUEROA on 01/01/22851 Last Action: Reviewed on 01/01/22852 by ANGELITO FIGUEROA Estradiol (Estrace) 42.5 Gm Cream.appl, 1 GM VG 3X/WEEK for atropic vaginitis, #1 Ref 11 Prescribed by: COSTA CLAROS on 01/01/22 1540 Hydrocodone/Apap 5-325 ([place] 5-325 Tablet) 1 Each Tablet, 1-2 TAB PO Q4HRS for PAIN, #30 (Reported) Entered as Reported by: PATRICIO HARVEY on 09/22/15 1420 Last Action: Continued on 12/29/211652 by JASEN LEZAMA Lactobacillus Rhamnosus Gg (Culturelle) 1 Each Cap.sprink, 1 CAP PO BID for UTI for 14 Days, #28 Prescribed by: JOHN CRAIN MD on 01/02/22 1223 Lisinopril (Lisinopril) 40 Mg Tablet, 1 TAB PO DAILY, #30 Ref 5 (Reported) Entered as Reported by: PARI HUDSON on 09/18/15 2220 Last Action: Continued on 12/29/211652 by JASEN LEZAMA Scheduled PRN Ondansetron (Zofran Odt) 4 Mg Tab.rapdis, 1 TAB SL PRN Q8HRS PRN for NAUSEA, #6 Prescribed by: OMAR LYONS on 10/03/16 0850 Last Action: Continued on 12/29/211652 by JASEN LEZAMA Discontinued Medications Alprazolam (Xanax) 0.25 Mg Tablet, 1 TAB PO BID, #12 Prescribed by: Rosalee Olson APRN on 06/26/19 192 Last Action: Continued on 12/29/211652 by JASEN LEZAMA Cephalexin (Keflex) 500 Mg Capsule, 1 CAP PO BID, #14 Prescribed by: Rosalee Olson APRN on 06/26/191857 Last Action: HELD on 12/29/211652 by JASEN LEZAMA Cephalexin (Cephalexin) 500 Mg Tablet, 1 TAB PO BID for 7 Days, #14 Prescribed by: MINI DU DO on 12/17/21 0737 Last Action: HELD on 12/29/211652 by JASEN LEZAMA Ciprofloxacin Hcl (Ciprofloxacin Hcl) 250 Mg Tablet, 1 TAB PO BID, #6 Prescribed by: DEXTER FRASER MD on 09/22/15 1118 Last Action: HELD on 12/29/211652 by JASEN LEZAMA Hydrocodone Bit/Acetaminophen (Hydrocodone-Apap 5-325 ) 1 Each Tablet, 1 TAB PO PRN Q6HRS PRN for PAIN, #14 Prescribed by: OMAR LYONS on 10/03/16 0850 Last Action: Continued on 12/29/211652 by JASEN LEZAMA Justicifation of Admission Dx: Justifications for Admission: Justification of Admission Dx: Yes JOHN CRAIN MD Jan 02, 2022 12:28
--- NOTE | 2022-01-02 14:06 | NUR ---
1400 patient discharged to home. taken out by wheelchair
--- NOTE | 2022-01-04 09:40 | EKG ---
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
== END 2022-01-02 14:00 | disposition home or self-care (01) | DRG 872 ==
LOC: ER 10:59 → 4 NORTH 13:30
PROVIDERS: ADMIT Internal Medicine; ATTEND Internal Medicine
DX: A41.9 Sepsis, unspecified organism (principal); N30.01 Acute cystitis with hematuria; I10 Essential (primary) hypertension; K59.00 Constipation, unspecified; M81.0 Age-related osteoporosis without current pathological fracture; N95.2 Postmenopausal atrophic vaginitis; K21.9 Gastro-esophageal reflux disease without esophagitis; K76.89 Other specified diseases of liver; M19.90 Unspecified osteoarthritis, unspecified site; Z88.8 Allergy status to other drugs, medicaments and biological substances; Z82.49 Family history of ischemic heart disease and other diseases of the circulatory system; Z90.49 Acquired absence of other specified parts of digestive tract; Z20.822 Contact with and (suspected) exposure to COVID-19
CPT/HCPCS: 36415; 80053; 81001; 85025; 87077; 87086; 87186; 87426; 93005; 96361; 96365; 96375; J0744; J1956; J2405; J3010; J7030; U0003; 97116-GP; 97530-GP; 97535-GO; 99285-25; G0378